=== PATIENT | female | born 1995 | race Caucasian/White ===

== ENCOUNTER 2018-05-20 10:59 | Outpatient (CLI) | payer BC, OTHER ==
[2018-05-20 11:31] VITALS: TEMP 97.2
[2018-05-20 11:32] VITALS: RESP 16
[2018-05-20 11:44] LABS: Appearance,Urine Clear (Clear); Bilirubin,Urine Negative (Negative); Blood,Urine Negative (Negative); Color,Urine Yellow; Glucose,Urine (UA) 2+ (Negative); Ketones,Urine Negative (Negative); Leukocyte Esterase,Urine Negative (Negative); Nitrite,Urine Negative (Negative); Protein,Urine Trace (Negative); Urobilinogen,Urine <2.0 mg/dL (<2.0)
[2018-05-20 12:33] LABS: Basophils % (A) 0 %; Eosinophils # (A) 0.1 k/uL (0-0.7); Eosinophils % (A) 1 %; HCT 32.4 % (34.0-46.0); HGB 10.7 gm/dL (11.4-16.0); Lymphocytes # (A) 1.9 k/uL (1.0-4.8); Lymphocytes % (A) 14 %; MCH 27.8 pg (25.0-35.0); MCHC 32.9 g/dL (31.0-37.0); MCV 84.4 fL (80.0-100.0); Mean Platelet Volume 8.2; Monocytes # (A) 0.5 k/uL (0-1.0); Monocytes % (A) 4 %; Neutrophils # (A) 10.5 k/uL (1.3-7.7); Neutrophils % (A) 80 %; Platelet Count 277 k/uL (150-450); RBC 3.84 m/uL (3.80-5.40); RDW 14.5 % (11.5-15.5); WBC 13.2 k/uL (3.8-10.6)
[2018-05-20 13:00] VITALS: BP 119/73; PULSE 90
[2018-05-20 13:16] LABS: ALT 25 U/L (9-52); AST 19 U/L (14-36); Blood Urea Nitrogen 9 mg/dL (7-17); LDH 400 U/L (313-618); Uric Acid 4.3 mg/dL (3.7-7.4)
== END 2018-05-20 13:30 | disposition home or self-care (01) ==
LOC: FBPOP 10:59
PROVIDERS: ATTEND Obstetrics & Gynecology
DX: O13.3 Gestational [pregnancy-induced] hypertension without significant proteinuria, third trimester (principal); Z3A.36 36 weeks gestation of pregnancy
CPT/HCPCS: 59025; 81003; 82565; 83615; 84450; 84460; 84520; 84550; 85025

== ENCOUNTER 2018-05-23 06:00 | Inpatient (IN) | payer BC, OTHER ==
[2018-05-23] MEDS ORDERED: DINOPROSTONE 10 MG INSERT.ER VAGINAL ONE (16:38)
[2018-05-23] MEDS ORDERED: BUTORPHANOL 1 MG/ML 1 ML VIAL IV PRN (16:38)
[2018-05-23 16:57] VITALS: BP 142/79; RESP 16; TEMP 97.4; BMI 32.8
[2018-05-23 17:48] VITALS: PULSE 104
[2018-05-24] MEDS ORDERED: CARBOPROST TROMETHAMINE 250 MCG/ML 1 ML AMP IM PRN (04:57)
[2018-05-24] MEDS ORDERED: METHYLERGONOVINE 0.2 MG/ML 1 ML AMP IM PRN (04:57)
[2018-05-24] MEDS ORDERED: LIDOCAINE 0.5% (PF) 5 MG/ML (50 ML SDV) SQ PRN (04:57)
[2018-05-24] MEDS ORDERED: TERBUTALINE 1 MG/ML VIAL SQ PRN (04:57)
[2018-05-24] MEDS ORDERED: OXYTOCIN 10 UNIT/ML 1 ML VIAL IM PRN (04:57)
[2018-05-24] MEDS ORDERED: LACTATED RINGERS 1,000 ML IV SCH (05:00)
[2018-05-24] MEDS ORDERED: OXYTOCIN 20 UNITS/1000 ML NS 1,000 ML IV SCH (06:00)
[2018-05-24 06:05] LABS: Basophils % (A) 0 %; Eosinophils # (A) 0.1 k/uL (0-0.7); Eosinophils % (A) 1 %; HCT 33.6 % (34.0-46.0); HGB 10.7 gm/dL (11.4-16.0); Lymphocytes # (A) 2.2 k/uL (1.0-4.8); Lymphocytes % (A) 19 %; MCH 26.6 pg (25.0-35.0); MCV 83.3 fL (80.0-100.0); Mean Platelet Volume 7.1; Monocytes # (A) 0.4 k/uL (0-1.0); Monocytes % (A) 3 %; Neutrophils # (A) 8.4 k/uL (1.3-7.7); Neutrophils % (A) 74 %; Platelet Count 323 k/uL (150-450); RBC 4.03 m/uL (3.80-5.40); RDW 14.8 % (11.5-15.5); WBC 11.4 k/uL (3.8-10.6)
[2018-05-24 08:24] LABS: Basophils % (A) 0 %; Eosinophils # (A) 0.1 k/uL (0-0.7); Eosinophils % (A) 1 %; HCT 32.8 % (34.0-46.0); HGB 10.9 gm/dL (11.4-16.0); Lymphocytes # (A) 1.6 k/uL (1.0-4.8); Lymphocytes % (A) 13 %; MCH 27.9 pg (25.0-35.0); MCHC 33.1 g/dL (31.0-37.0); MCV 84.3 fL (80.0-100.0); Mean Platelet Volume 7.8; Monocytes # (A) 0.4 k/uL (0-1.0); Monocytes % (A) 3 %; Neutrophils # (A) 10.5 k/uL (1.3-7.7); Neutrophils % (A) 82 %; Platelet Count 283 k/uL (150-450); RBC 3.89 m/uL (3.80-5.40); RDW 14.8 % (11.5-15.5); WBC 12.8 k/uL (3.8-10.6)
[2018-05-24 08:34] LABS: ALT 28 U/L (9-52); AST 20 U/L (14-36); Blood Urea Nitrogen 9 mg/dL (7-17); LDH 437 U/L (313-618); Uric Acid 4.5 mg/dL (3.7-7.4)
[2018-05-24 08:53] LABS: Appearance,Urine Clear (Clear); Bilirubin,Urine Negative (Negative); Blood,Urine Negative (Negative); Color,Urine Yellow; Glucose,Urine (UA) Negative (Negative); Ketones,Urine Negative (Negative); Leukocyte Esterase,Urine Negative (Negative); Nitrite,Urine Negative (Negative); PH, Urine 6.5 (5.0-8.0); Protein,Urine Negative (Negative); Specific Gravity,Urine 1.014 (1.001-1.035); Urobilinogen,Urine <2.0 mg/dL (<2.0)
--- NOTE | 2018-05-24 09:12 | DS ---
DISCHARGE SUMMARY DATE OF ADMISSION: 05/23/2018 DATE OF DISCHARGE: 05/24/2018 PRINCIPAL DIAGNOSIS: Intrauterine with gestational hypertension. POSTOPERATIVE DIAGNOSIS: Intrauterine with gestational hypertension. HOSPITAL COURSE: Radha has done well, however, did not make any cervical change despite Cervidil ripening. A long discussion was held with she and her mother on treatment options. These did include using Pitocin to try and stimulate labor despite the fact that she was fingertip and approximately 50% effaced, -3 station, a primary section to get her delivered or discharge to home with repeat trial of Cervidil ripening on Wednesday into . As she is adamant she does not want a section and with over 40% likelihood of requiring a based on cervical effacement and dilation, she has opted to be discharged home and will return tomorrow for a repeat Cervidil ripening. Repeat preeclamptic labs were done prior to her discharge and were all normal. Her vital signs are otherwise stable and her blood pressure currently is 130/80. As I have no other specific reasons to have to induce her today other than to get her delivered in the next few days due to her gestational hypertension, I think this is a reasonable option. She is aware should she have any headache, epigastric pain, or visual changes to immediately come back to Labor and Delivery for evaluation. She will do kick counts today and tomorrow, but the NST today is reactive and baby has a category 1 tracing. She and I have discussed that if the Cervidil again does not work, we may need to be more aggressive with using medications to try and stimulate labor as she will be approaching 38 weeks. All other questions are answered for her at this time. Her vital signs again are stable. Her heart is regular, lungs are clear and her extremities are without pain and show no pedal edema. Abdomen is soft and gravid uterus is noted. There are no contractions noted on the monitor. She denies any headaches, epigastric pain, or visual changes at this time and the deep tendon reflexes are +2. ASSESSMENT: 1. Intrauterine at 37 weeks with gestational hypertension. PLAN: Discharge home. Return tomorrow for repeat dose of Cervidil. MMODL / IJN: [id number] /
== END 2018-05-24 09:23 | disposition home or self-care (01) | DRG 998 ==
LOC: 4FBP 16:16
PROVIDERS: ADMIT Obstetrics & Gynecology; ATTEND Obstetrics & Gynecology
PROC: 3E0P7VZ Introduction of Hormone into Female Reproductive, Via Natural or Artificial Opening (ICD-10-PCS; principal; 2018-05-23)
PROC: 3E033VJ Introduction of Other Hormone into Peripheral Vein, Percutaneous Approach (ICD-10-PCS; principal; 2018-05-23)
DX: O13.4 Gestational [pregnancy-induced] hypertension without significant proteinuria, complicating childbirth (principal); O61.0 Failed medical induction of labor; Z3A.37 37 weeks gestation of pregnancy
CPT/HCPCS: 81003; 82565; 83615; 84450; 84460; 84520; 84550; 85025; 86850; 86900; 86901

== ENCOUNTER 2018-05-25 16:44 | Inpatient (IN) | payer BC, OTHER ==
[2018-05-25] MEDS ORDERED: BUTORPHANOL 1 MG/ML 1 ML VIAL IV PRN (16:58)
[2018-05-25 17:07] VITALS: BMI 34.1
[2018-05-25] MEDS ORDERED: DINOPROSTONE 10 MG INSERT.ER VAGINAL ONE (17:15)
[2018-05-26] MEDS ORDERED: OXYTOCIN 10 UNIT/ML 1 ML VIAL IM PRN (05:11)
[2018-05-26] MEDS ORDERED: TERBUTALINE 1 MG/ML VIAL SQ PRN (05:11)
[2018-05-26] MEDS ORDERED: CARBOPROST TROMETHAMINE 250 MCG/ML 1 ML AMP IM PRN (05:11)
[2018-05-26] MEDS ORDERED: LIDOCAINE 0.5% (PF) 5 MG/ML (50 ML SDV) SQ PRN (05:11)
[2018-05-26] MEDS ORDERED: METHYLERGONOVINE 0.2 MG/ML 1 ML AMP IM PRN (05:11)
[2018-05-26] MEDS ORDERED: OXYTOCIN 20 UNITS/1000 ML NS 1,000 ML IV SCH (05:15)
[2018-05-26 05:56] LABS: Basophils % (A) 0 %; Eosinophils # (A) 0.2 k/uL (0-0.7); Eosinophils % (A) 1 %; HCT 32.9 % (34.0-46.0); HGB 10.6 gm/dL (11.4-16.0); Lymphocytes # (A) 1.6 k/uL (1.0-4.8); Lymphocytes % (A) 13 %; MCHC 32.1 g/dL (31.0-37.0); MCV 84.1 fL (80.0-100.0); Mean Platelet Volume 7.5; Monocytes # (A) 0.5 k/uL (0-1.0); Monocytes % (A) 4 %; Neutrophils # (A) 9.9 k/uL (1.3-7.7); Neutrophils % (A) 80 %; Platelet Count 299 k/uL (150-450); RBC 3.91 m/uL (3.80-5.40); RDW 14.8 % (11.5-15.5); WBC 12.5 k/uL (3.8-10.6)
[2018-05-26] MEDS: LACTATED RINGERS 1,000 ML IV SCH ×2 (05:58→11:43)
[2018-05-26] MEDS ORDERED: ceFAZolin IN SWFI 2 GM/20 ML SYRINGE IVP ONE (16:15)
[2018-05-26] MEDS ORDERED: CITRIC ACID-SODIUM CITRATE 15 ML CUP PO ONE (16:15)
[2018-05-26] MEDS ORDERED: KETOROLAC 30 MG/ML 1 ML VIAL ONE (17:05)
[2018-05-26] MEDS ORDERED: OXYTOCIN 10 UNIT/ML 1 ML VIAL ONE (17:05)
[2018-05-26] MEDS ORDERED: ONDANSETRON 4 MG/2 ML VIAL ONE (17:05)
[2018-05-26] MEDS ORDERED: MORPHINE SULFATE (PF) 0.3 MG/0.3 ML SYR ONE (17:05)
[2018-05-26] MEDS ORDERED: LACTATED RINGERS 1,000 ML BAG IV ONE (17:05)
[2018-05-26] MEDS ORDERED: NALBUPHINE 10 MG/ML VIAL (10ML MDV) ONE (17:05)
[2018-05-26] MEDS ORDERED: METOCLOPRAMIDE 5 MG/ML 2 ML VIAL IVP PRN (18:09)
[2018-05-26] MEDS ORDERED: diphenhydrAMINE 50 MG CAP PO PRN (18:09)
[2018-05-26] MEDS ORDERED: NALOXONE 0.4 MG/ML 1 ML VIAL IV PRN (18:09)
[2018-05-26] MEDS ORDERED: diphenhydrAMINE 25 MG CAP PO PRN (18:09)
[2018-05-26] MEDS ORDERED: diphenhydrAMINE 50 MG/ML 1 ML VIAL IVP PRN ×2 (18:09)
[2018-05-26] MEDS ORDERED: KETOROLAC 30 MG/ML 1 ML VIAL IVP PRN (18:09)
[2018-05-26] MEDS ORDERED: ZOLPIDEM 5 MG TAB PO PRN (18:09)
[2018-05-26] MEDS ORDERED: ONDANSETRON 4 MG/2 ML VIAL IVP PRN (18:09)
--- NOTE | 2018-05-26 18:13 | P.HPOB ---
History of Present Illness H&P Date: 05/26/18 Chief Complaint: Intrauterine at term: Gestational hypertension Patient is a 23-year-old at 37 weeks 3 days gestation who had Cervidil ripening yesterday. She has gestational hypertension with multiple pressures of systolic over 140 and/or diastolic over 90. She is being induced for same. Risks/benefits/alternatives were reviewed with the patient in detail and all questions were answered for her prior to proceeding. She was dilated to 1 cm this morning and artificial rupture members was performed clear fluid noted. She was also 8% effaced and -3 station. heart tones were in the 130s 140s and category 1 tracing was noted. Plan is for Pitocin augmentation of labor with probably epidural for analgesia. Her Precis course otherwise had been unremarkable up until last few weeks when she began having slight elevations of her blood pressure preeclamptic labs have all been normal she denied headache epigastric pain or other signs or symptoms of preeclampsia. We' ll plan for induction of labor. Pertinent labs include B+ blood type, Rh antibody was negative. Rubella was immune, hepatitis B surface antigen/RPR/HIV/ cheek GBS were all negative. Past Medical History Past Medical History: No Reported History History of Any Multi-Drug Resistant Organisms: None Reported Past Surgical History: No Surgical Hx Reported Past Anesthesia/Blood Transfusion Reactions: No Reported Reaction Past Psychological History: Anxiety, Bipolar, Depression Smoking Status: Former smoker Past Alcohol Use History: Occasional Past Drug Use History: None Reported - Past Family History Father Family Medical History: No Reported History Medications and Allergies Home Medications Medication Instructions Recorded Confirmed Type No Known Home Medications 05/20/18 05/23/18 History Allergies Allergy/AdvReac Type Severity Reaction Status Date / Time No Known Allergies Allergy Verified 05/25/18 16:58 Exam Osteopathic Statement: *. No significant issues noted on an osteopathic structural exam other than those noted in the History and Physical/Consult. Intake and Output 05/26/18 05/26/18 05/26/18 06:59 14:59 22:59 Intake Total 500 1000 Balance 500 1000 Intake: IV 200 Lactated Ringers 1,000 ml 200 @ 125 mls/hr IV .Q8H [facility] Rx#:[id number] Intake, IV Titration 1000 Amount Oxytocin 20 Units/1000 ml 1000 Ns 1,000 ml @ 1 MILLIUNIT/MIN 3 mls/hr IV .Q24H [facility] Rx#:[id number] Oral 300 Other: # Voids 2 4 - OBG Physical Exam Breast: both: normal (no masses) Abdomen: bowel sounds normal, no diffuse tenderness, no bruit present, no guarding noted, no hepatomegaly, no splenomegaly, no mass Vulva: both: normal Vagina: normal moisture, no discharge Cervix: no lesion, no discharge Uterus: normal size, normal contour Adnexa: both: normal Anus/Rectum: normal perianal skin, no rectal mass, no hemorrhoids, heme negative Results Result Diagrams: 05/26/18 05:49 Abnormal Lab Results - Last 24 Hours (Table) 05/26/18 Range/Units 05:49 WBC 12.5 H (3.8-10.6) k/uL Hgb 10.6 L (11.4-16.0) gm/dL Hct 32.9 L (34.0-46.0) % Neutrophils # 9.9 H (1.3-7.7) k/uL
[2018-05-26] MEDS ORDERED: LACTATED RINGERS 1,000 ML IV SCH (18:15)
--- NOTE | 2018-05-26 18:17 | P.OP ---
Date of Procedure: 05/26/18 Preoperative Diagnosis: Intrauterine at term: Gestational hypertension: Failure to progress Postoperative Diagnosis: Same with OP position Procedure(s) Performed: Primary low transverse section Anesthesia: spinal Surgeon: Oswald Ruiz Paint Spray Tender #1: Rut Tracy Estimated Blood Loss (ml): 200 IV fluids (ml): 1,000 Urine output (ml): 50 Pathology: other (Placenta) Condition: stable Disposition: floor Operative Findings: Female scores were 8 and 9 at one and 5 minutes respectively and the weight was 6 lbs. 7 oz. Description of Procedure: Patient was taken to the operating suite where a spinal anesthetic was found be adequate. She was prepped and draped in the normal sterile fashion and placed in dorsal supine position with leftward tilt. Initially a Pfannenstiel skin incision was made and this incision was then carried through to underlying layer of the fascia with the second knife. Fascia was then nicked in the midline and this opening was extended laterally with Romero scissors. Superior and inferior aspect of this incision were then grasped tented up and bluntly and sharply dissected off the rectus muscles. Rectus muscles were then divided the midline and blunt dissection through the peritoneum was made. This opening was then extended superiorly and inferiorly with good visualization of both bowel bladder. Bladder blade was then placed and the bladder flap identified. It was entered sharply with Metzenbaum scissors and this opening was a's uterus with Metzenbaum scissors and bladder flap was digitally created. Knife was then used to incise uterus. Opening was fully developed with a hemostat and extended bluntly. Head was then atraumatically delivered and mouth nares were bulb suctioned. Once head was delivered shoulders were delivered gentle sideward traction followed by the remainder the baby. Umbilical cord was then clamped cut usual fashion an nursery personnel was present to assume care. Placenta was then delivered intact and Pitocin was added to the IV. Uterus was then exteriorized cleared of clots and debris and closed in 2 layers with 0 Vicryl suture. Despite this closely was still some mild oozing along the suture line therefore FloSeal was used to obtain excellent hemostasis. Blood and debris was also suctioned the posterior cul-de-sac and uterus had been reinserted into the abdomen. Peritoneal layer was then closed with 0 Vicryl suture. Fascial layer was closed with 0 Vicryl suture. One layer of 3-0 Vicryl was placed in the deep subcuticular tissues to reapproximate the skin and close the space and the skin was then closed with 3-0 Vicryl. Sponge, lap, needle counts were all correct 2. Patient was then taken to the recovery room in stable and satisfactory condition.
[2018-05-26] MEDS: SENNOSIDES-DOCUSATE SODIUM 1 EACH TAB PO SCH (19:43)
[2018-05-27] MEDS: LACTATED RINGERS 1,000 ML IV SCH ×2 (02:11→09:36)
--- NOTE | 2018-05-27 06:21 | P.PN ---
Progress Note - Text Progress Note Date: 05/27/18 Duramorph spinal rounds Patient evaluated at the bedside denies any complaints Anesthesia site spinal site looks clean dry and intact Vitals within normal limits Pain well-controlled no complaints of pruritus or headaches This spinal site looks clean dry and intact Anesthesia signing off
[2018-05-27 06:58] LABS: Basophils % (A) 0 %; Eosinophils # (A) 0.1 k/uL (0-0.7); Eosinophils % (A) 1 %; HCT 31.3 % (34.0-46.0); HGB 9.8 gm/dL (11.4-16.0); Lymphocytes # (A) 1.3 k/uL (1.0-4.8); Lymphocytes % (A) 12 %; MCH 26.1 pg (25.0-35.0); MCHC 31.2 g/dL (31.0-37.0); MCV 83.4 fL (80.0-100.0); Mean Platelet Volume 8.9; Monocytes # (A) 0.3 k/uL (0-1.0); Monocytes % (A) 3 %; Neutrophils # (A) 9.3 k/uL (1.3-7.7); Neutrophils % (A) 83 %; Platelet Count 241 k/uL (150-450); RBC 3.75 m/uL (3.80-5.40); RDW 14.7 % (11.5-15.5); WBC 11.2 k/uL (3.8-10.6)
--- NOTE | 2018-05-27 07:57 | P.PNOBGPC ---
Subjective - Subjective Principal diagnosis: Postop day 1 Interval history: Patient is doing very well postop day 1. She is involuting some, voiding and tolerating her diet. She voices no complaints. Vital signs are stable and afebrile. Heart regular, lungs clear, extremities are without pain. Abdomen is soft uterus is firm and her incision is otherwise clean dry and intact. Patient reports: Reports appetite normal, Reports voiding normally, Reports pain well controlled, Reports ambulating normally : doing well Objective - Vital Signs Latest vital signs: Vital Signs Temp Pulse Resp BP Pulse Ox 05/27/18 04:00 96.9 F L 79 18 114/62 97 05/27/18 00:00 67 18 117/72 98 05/26/18 20:12 96.9 F L 68 18 113/72 97 05/26/18 19:42 72 18 115/74 93 L 05/26/18 19:12 78 18 121/71 97 05/26/18 18:57 79 18 111/71 97 05/26/18 18:42 97.0 F L 80 18 111/86 97 05/26/18 18:27 81 18 122/63 98 05/26/18 18:12 96.8 F L 76 18 117/57 96 Intake and Output 05/26/18 05/27/18 05/27/18 22:59 06:59 14:59 Intake Total 125 500 Output Total 300 200 Balance -175 300 Intake: IV 125 500 Lactated Ringers 1,000 ml 500 @ 125 mls/hr IV .Q8H [facility] Rx#:[id number] Output: Urine 100 200 Uretheral (Lara) 200 Estimated Blood Loss 200 Other: Voiding Method Indwelling Catheter Indwelling Catheter - Exam Lungs: bilateral: normal Chest: Normal S1, Normal S2 Extremities: Present: normal Abdomen: Present: normal appearance, soft. Absent: distention, tenderness Incision: Present: normal, dry, intact Uterus: Present: normal, firm - Labs Labs: Abnormal Lab Results - Last 24 Hours (Table) 05/27/18 Range/Units 06:48 WBC 11.2 H (3.8-10.6) k/uL RBC 3.75 L (3.80-5.40) m/uL Hgb 9.8 L (11.4-16.0) gm/dL Hct 31.3 L (34.0-46.0) % Neutrophils # 9.3 H (1.3-7.7) k/uL
[2018-05-27] MEDS: SENNOSIDES-DOCUSATE SODIUM 1 EACH TAB PO SCH ×2 (09:41→21:34)
[2018-05-27] MEDS: ACETAMINOPHEN TAB 325 MG TAB PO PRN ×2 (12:31→18:34)
[2018-05-27 15:53] VITALS: TEMP 98.3
[2018-05-27] MEDS: IBUPROFEN 600 MG TAB PO PRN (21:33)
[2018-05-28 01:10] VITALS: BP 121/72; PULSE 77; RESP 16
[2018-05-28] MEDS: IBUPROFEN 600 MG TAB PO PRN (04:00)
--- NOTE | 2018-05-28 09:01 | P.DS ---
Providers Date of admission: 05/25/18 16:44 Expected date of discharge: 05/28/18 Attending physician: Oswald Ruiz Primary care physician: Stated None - Discharge Diagnosis(es) (1) Status post primary low transverse section Current Visit: Yes Status: Acute Hospital Course: Pt presented for induction of labor for gestational hypertension. She underwent a primary low transverse for failure to progress. HEr BPs are normal. She denies N/V, F/C, CP, KISER or SOB. Her pain is controlled and she is voiding and ambulating without difficulty. She will be discharged home POD #2 in stable condition to follow up with Dr Ruiz in 1 week. Plan - Discharge Summary New Discharge Prescriptions: New HYDROcodone/APAP 5-325MG [[place] 5-325] 1 tab PO Q4HR PRN #30 tab PRN Reason: Pain Ibuprofen [Motrin] 600 mg PO Q6HR PRN #30 tab PRN Reason: Pain Discharge Medication List HYDROcodone/APAP 5-325MG [[place] 5-325] 1 tab PO Q4HR PRN #30 tab 05/27/18 [Rx] Ibuprofen [Motrin] 600 mg PO Q6HR PRN #30 tab 05/27/18 [Rx] Follow up Appointment(s)/Referral(s): Oswald Ruiz DO [Doctor of Osteopathic Medicine] - 1 Week Activity/Diet/Wound Care/Special Instructions: No heavy lifting, limit stairs and driving, and pelvic rest. If any high temperatures, heavy bleeding, or severe pain call my office Discharge Disposition: HOME SELF-CARE
[2018-05-28] MEDS: SENNOSIDES-DOCUSATE SODIUM 1 EACH TAB PO SCH (09:55)
== END 2018-05-28 11:20 | disposition home or self-care (01) | DRG 788 ==
LOC: 4FBP 16:44
PROVIDERS: ADMIT Obstetrics & Gynecology; ATTEND Obstetrics & Gynecology
PROC: 10D00Z1 Extraction of Products of Conception, Low, Open Approach (ICD-10-PCS; principal; 2018-05-25)
PROC: 10907ZC Drainage of Amniotic Fluid, Therapeutic from Products of Conception, Via Natural or Artificial Opening (ICD-10-PCS; 2018-05-25)
DX: O13.4 Gestational [pregnancy-induced] hypertension without significant proteinuria, complicating childbirth (principal); O62.2 Other uterine inertia; O99.344 Other mental disorders complicating childbirth; F41.9 Anxiety disorder, unspecified; F31.9 Bipolar disorder, unspecified; O99.62 Diseases of the digestive system complicating childbirth; Z37.0 Single live birth; Z3A.37 37 weeks gestation of pregnancy; Z87.891 Personal history of nicotine dependence
CPT/HCPCS: 85025; 88307

== ENCOUNTER 2020-01-31 15:49 | Emergency (ER) | payer BC, OTHER ==
[2020-01-31 15:57] VITALS: TEMP 98.6
--- NOTE | 2020-01-31 16:45 | ED ---
Female Urogenital HPI - General Chief complaint: Vaginal Bleeding Stated complaint: 6wks preg bleeding Time Seen by Provider: 01/31/20 15:59 Source: patient Mode of arrival: ambulatory Limitations: no limitations - History of Present Illness Initial comments: Patient is a 24-year-old female presenting to the emergency Department with complaints of vaginal bleeding and increase in pain for the last few days. Patient is currently 6 weeks , . She states she noticed some light spotting for the past 3 days but then today the bleeding has increased and she is starting to pass clots. Patient states she also started to have some pain today which she didn't have the previous 3 days. Patient's LUNG PULLER is Dr. Ruiz and she did call their office today and they said if the pain and bleeding continues to go to the ER for evaluation. The history of , no other abdominal surgeries. Any fever, chills, chest pain or shortness of br eath, dizziness. She has no further complaints at this time. Upon arrival to the ER, patient was little tachycardia but otherwise normal vitals. She states she was just really nervous. - Related Data Previous Rx's Medication Instructions Recorded HYDROcodone/APAP 5-325MG [[place] 1 tab PO Q4HR PRN #30 tab 05/27/18 5-325] Ibuprofen [Motrin] 600 mg PO Q6HR PRN #30 tab 05/27/18 Allergies Allergy/AdvReac Type Severity Reaction Status Date / Time No Known Allergies Allergy Verified 01/31/20 15:57 Review of Systems ROS Statement: Those systems with pertinent positive or pertinent negative responses have been documented in the HPI. ROS Other: All systems not noted in ROS Statement are negative. Past Medical History Past Medical History: No Reported History History of Any Multi-Drug Resistant Organisms: None Reported Past Surgical History: Section Past Anesthesia/Blood Transfusion Reactions: No Reported Reaction Past Psychological History: Anxiety, Bipolar, Depression Smoking Status: Former smoker Past Alcohol Use History: Occasional Past Drug Use History: None Reported - Past Family History Father Family Medical History: No Reported History General Exam - General Exam Comments Initial Comments: GENERAL: Patient is well-developed and well-nourished. Patient is nontoxic and in no acute distress. HEAD: Atraumatic, normocephalic. EYES: Pupils equal round and reactive to light, extraocular movements intact, sclera anicteric, conjunctiva are normal. Eyelids were unremarkable. ENT: TMs normal, nares patent, oropharynx clear without exudates. Moist mucous membranes. NECK: Normal range of motion, supple without lymphadenopathy or JVD. LUNGS: Unlabored respirations. Breath sounds clear to auscultation bilaterally and equal. No wheezes rales or rhonchi. HEART: Regular rate and rhythm without murmurs, rubs or gallops. ABDOMEN: Mild pain with palpation suprapubic area. Soft, normoactive bowel sounds. No guarding, no rebound. No masses appreciated. MUSCULOSKELETAL: Normal extremities with adequate strength and normal range of motion, no pitting or edema. No clubbing or cyanosis. NEUROLOGICAL: Patient is alert and oriented x 3. Motor and sensory are also intact. Cranial nerves II through XII grossly intact. Symmetrical smile. Normal speech, normal gait. PSYCH: Normal mood, normal affect. SKIN: Warm, Dry, normal turgor, no rashes or lesions noted. Limitations: no limitations External exam: Present: normal external exam Speculum exam: Present: vaginal bleeding, other (Cervical os is closed). Absent: cervical discharge, foreign body By manual exam: Present: normal by manual exam Course Vital Signs 01/31/20 01/31/20 15:54 18:29 Temperature 98.6 F Pulse Rate 128 H 93 Respiratory 20 18 Rate Blood Pressure 138/86 138/71 O2 Sat by Pulse 98 99 Oximetry Medical Decision Making - Medical Decision Making Patient is a 24-year-old female, currently 6 weeks , , presenting for vaginal bleeding and pain has been increasing over the past 4 days[address] PULLER [address]. Ruiz. Labs show no acute process, hCG Quant is 3900, urine shows no evidence for infection. Ultrasound reveals no evidence of a IUP. There is a right ovarian cyst as well. Blood type is B+. I did discuss the details with the patient. Patient did say that she did have an ultrasound performed yesterday which I was unaware of, there was a viable IUP and a heartbeat noted yesterday. Given these new findings, I discussed with patient that she most likely is miscarrying. We discussed that she may have some vaginal bleeding over the next few days. She can follow up with Dr. Ruiz. She is stable for discharge at this time. Return parameters were discussed with the patient and she verbalized understanding. - Lab Data Result diagrams: 01/31/20 16:31 01/31/20 16:31 Lab Results 01/31/20 01/31/20 01/31/20 Range/Units 16:31 16:31 16:31 WBC 9.4 (3.8-10.6) k/uL RBC 4.37 (3.80-5.40) m/uL Hgb 12.6 (11.4-16.0) gm/dL Hct 37.2 (34.0-46.0) % MCV 85.3 (80.0-100.0) fL MCH 28.8 (25.0-35.0) pg MCHC 33.8 (31.0-37.0) g/dL RDW 12.9 (11.5-15.5) % Plt Count 278 (150-450) k/uL Neutrophils % 71 % Lymphocytes % 24 % Monocytes % 3 % Eosinophils % 1 % Basophils % 0 % Neutrophils # 6.7 (1.3-7.7) k/uL Lymphocytes # 2.3 (1.0-4.8) k/uL Monocytes # 0.3 (0-1.0) k/uL Eosinophils # 0.1 (0-0.7) k/uL Basophils # 0.0 (0-0.2) k/uL Sodium 139 (137-145) mmol/L Potassium 3.5 (3.5-5.1) mmol/L Chloride 105 (98-107) mmol/L Carbon Dioxide 26 (22-30) mmol/L Anion Gap 8 mmol/L BUN 10 (7-17) mg/dL Creatinine 0.83 (0.52-1.04) mg/dL Est GFR (CKD-EPI)AfAm >90 (>60 ml/min/1.73 sqM) Est GFR (CKD-EPI)NonAf >90 (>60 ml/min/1.73 sqM) Glucose 126 H (74-99) mg/dL Calcium 9.2 (8.4-10.2) mg/dL HCG, Quant 3920.5 mIU/mL Urine Color Colorless Urine Appearance Clear (Clear) Urine pH 6.5 (5.0-8.0) Ur Specific [place] 1.003 (1.001-1.035) Urine Protein Negative (Negative) Urine Glucose (UA) Negative (Negative) Urine Ketones Negative (Negative) Urine Blood Moderate H (Negative) Urine Nitrite Negative (Negative) Urine Bilirubin Negative (Negative) Urine Urobilinogen <2.0 (<2.0) mg/dL Ur Leukocyte Esterase Negative (Negative) Urine RBC 4 (0-5) /hpf Urine WBC <1 (0-5) /hpf Blood Type Blood Type Recheck Bld Type Recheck Status 01/31/20 Range/Units 16:31 WBC (3.8-10.6) k/uL RBC (3.80-5.40) m/uL Hgb (11.4-16.0) gm/dL Hct (34.0-46.0) % MCV (80.0-100.0) fL MCH (25.0-35.0) pg MCHC (31.0-37.0) g/dL RDW (11.5-15.5) % Plt Count (150-450) k/uL Neutrophils % % Lymphocytes % % Monocytes % % Eosinophils % % Basophils % % Neutrophils # (1.3-7.7) k/uL Lymphocytes # (1.0-4.8) k/uL Monocytes # (0-1.0) k/uL Eosinophils # (0-0.7) k/uL Basophils # (0-0.2) k/uL Sodium (137-145) mmol/L Potassium (3.5-5.1) mmol/L Chloride (98-107) mmol/L Carbon Dioxide (22-30) mmol/L Anion Gap mmol/L BUN (7-17) mg/dL Creatinine (0.52-1.04) mg/dL Est GFR (CKD-EPI)AfAm (>60 ml/min/1.73 sqM) Est GFR (CKD-EPI)NonAf (>60 ml/min/1.73 sqM) Glucose (74-99) mg/dL Calcium (8.4-10.2) mg/dL HCG, Quant mIU/mL Urine Color Urine Appearance (Clear) Urine pH (5.0-8.0) Ur Specific [place] (1.001-1.035) Urine Protein (Negative) Urine Glucose (UA) (Negative) Urine Ketones (Negative) Urine Blood (Negative) Urine Nitrite (Negative) Urine Bilirubin (Negative) Urine Urobilinogen (<2.0) mg/dL Ur Leukocyte Esterase (Negative) Urine RBC (0-5) /hpf Urine WBC (0-5) /hpf Blood Type B Positive Blood Type Recheck B Pos Bld Type Recheck Status No Disposition Clinical Impression: Vaginal bleeding during , Lower abdominal pain, Miscarriage Disposition: HOME SELF-CARE Condition: Stable Instructions (If sedation given, give patient instructions): Miscarriage (ED) Additional Instructions: Please return to the Emergency Department if symptoms worsen or any other concerns. Follow-up with Dr. Ruiz as discussed. Is patient prescribed a controlled substance at d/c from ED?: No Referrals: Regan Roy DO [Primary Care Provider] - 1-2 days Oswald Ruiz DO [Doctor of Osteopathic Medicine] - 1-2 days
[2020-01-31 16:47] LABS: Appearance,Urine Clear (Clear); Bilirubin,Urine Negative (Negative); Blood,Urine Moderate (Negative); Color,Urine Colorless; Glucose,Urine (UA) Negative (Negative); Ketones,Urine Negative (Negative); Leukocyte Esterase,Urine Negative (Negative); Nitrite,Urine Negative (Negative); PH, Urine 6.5 (5.0-8.0); Protein,Urine Negative (Negative); RBC,Urine 4 /hpf (0-5); Specific Gravity,Urine 1.003 (1.001-1.035); Urobilinogen,Urine <2.0 mg/dL (<2.0); WBC,Urine <1 /hpf (0-5)
[2020-01-31 16:56] LABS: African American GFR (CKD) >90 (>60 ml/min/1.73 sqM); Anion Gap 8 mmol/L; Basophils % (A) 0 %; Blood Urea Nitrogen 10 mg/dL (7-17); Calcium 9.2 mg/dL (8.4-10.2); Carbon Dioxide 26 mmol/L (22-30); Chloride 105 mmol/L (98-107); Eosinophils # (A) 0.1 k/uL (0-0.7); Eosinophils % (A) 1 %; Glucose 126 mg/dL (74-99); HCT 37.2 % (34.0-46.0); HGB 12.6 gm/dL (11.4-16.0); Lymphocytes # (A) 2.3 k/uL (1.0-4.8); Lymphocytes % (A) 24 %; MCH 28.8 pg (25.0-35.0); MCHC 33.8 g/dL (31.0-37.0); MCV 85.3 fL (80.0-100.0); Mean Platelet Volume 7.3; Monocytes # (A) 0.3 k/uL (0-1.0); Monocytes % (A) 3 %; Neutrophils # (A) 6.7 k/uL (1.3-7.7); Neutrophils % (A) 71 %; Non-African American GFR(CKD) >90 (>60 ml/min/1.73 sqM); Platelet Count 278 k/uL (150-450); Potassium 3.5 mmol/L (3.5-5.1); RBC 4.37 m/uL (3.80-5.40); RDW 12.9 % (11.5-15.5); Sodium 139 mmol/L (137-145); WBC 9.4 k/uL (3.8-10.6)
[2020-01-31 17:13] LABS: HCG,Quantitative Serum 3920.5 mIU/mL
--- NOTE | 2020-01-31 18:22 | US ---
EXAMINATION TYPE: DATE OF EXAM: 01/31/2020 5:05 PM COMPARISON: NONE CLINICAL HISTORY: 6wks , bleeding, pain. Tech: Candi Harkins EXAM PERFORMED: Transvaginal (TV) and Transabdominal (TA) EXAM MEASUREMENTS: GESTATIONAL AGE / DATING Physician Established: Not yet established Dates by Current Scan for: No IUP seen at this time MATERNAL ANATOMY Uterus: 9.3 x 4.4 x 5.7 cm Right Ovary: 2.8 x 2.4 x 1.9 cm Left Ovary: 1.9 x 1.8 x 1.3 cm Post CDS / Adnexa: wnl Presence of free fluid: No Presence of corpus luteal cyst: Yes, right ovary measuring 1.4 x 1.4 x 2.0 cm GESTATION / SURVEY IUP: No IUP seen at this time. Tiny amount fluid may be within the endometrial canal. Date of LMP: Unsure Beta HcG (if available): Not available No IUP visualized. Cystic area within myometrium measuring 0.7 x 0.4 x 0.9 cm. Cystic area right ovar y. IMPRESSION: 1. No intrauterine gestation identified at this time. Correlate for early or ectopic pregna ncy. 2. Right ovarian cyst, this is not simple.
[2020-01-31 18:29] VITALS: BP 138/71; PULSE 93; RESP 18
== END 2020-01-31 18:39 | disposition home or self-care (01) ==
LOC: EC 15:49
DX: O03.9 Complete or unspecified spontaneous abortion without complication (principal); N83.201 Unspecified ovarian cyst, right side; Z87.891 Personal history of nicotine dependence
CPT/HCPCS: 36415; 76801; 76817; 80048; 81001; 84702; 85025; 86900; 86901; 99284

== ENCOUNTER 2021-01-06 11:23 | Inpatient (IN) | payer BC, OTHER ==
--- NOTE | 2021-01-06 12:49 | US ---
EXAMINATION TYPE: US OB >= 14 wk fetus DATE OF EXAM: 01/06/2021 COMPARISON: None CLINICAL HISTORY: 40w2d EFW, JESSICA TECHNIQUE: Transabdominal (TA) GESTATIONAL AGE / DATING Physician Established: (40 weeks/2 days) EDC: 01/04/21 Dates by LMP: LMP unknown Dates by First Scan: No previous this is first scan Dates by Current Scan: (40 weeks/2 days) EDC: 01/11/21 SURVEY IUP: Single PLACENTA: Anterior PREVIA: No Previa JESSICA: 13.6 cm Normal CERVICAL LENGTH (transabdominal: norm > 3.0cm): 3.2 cm BIOMETRY PRESENTATION: Vertex LIE: Longitudinal BPD: 9.6 cm 39 weeks / 0 days HC: 34.2 cm 39 weeks / 3 days AC: 35.9 cm 39 weeks / 6 days FL: 7.6 cm 38 weeks / 6 days ESTIMATED WEIGHT IN GRAMS: 3784 grams ESTIMATED WEIGHT IN LBS/OZ: 8 lbs. 5 oz. HC/AC: 0.95 Normal FL/AC: 21% Normal HEART RATE: 140 bpm RHYTHM: Normal IMPRESSION: Limited survey. Single viable intrauterine corresponding to ultrasound age 39 weeks 2 days with estimated date of delivery January 11, 2021
[2021-01-08] MEDS ORDERED: CITRIC ACID-SODIUM CITRATE 15 ML CUP PO ONE (10:22)
[2021-01-08 10:48] LABS: Basophils % (A) 0 %; Eosinophils # (A) 0.1 k/uL (0-0.7); Eosinophils % (A) 1 %; HGB 10.1 gm/dL (11.4-16.0); Lymphocytes # (A) 1.7 k/uL (1.0-4.8); Lymphocytes % (A) 16 %; MCH 26.7 pg (25.0-35.0); MCHC 33.8 g/dL (31.0-37.0); MCV 78.9 fL (80.0-100.0); Mean Platelet Volume 9.3; Monocytes # (A) 0.3 k/uL (0-1.0); Monocytes % (A) 3 %; Neutrophils # (A) 8.4 k/uL (1.3-7.7); Neutrophils % (A) 78 %; Platelet Count 267 k/uL (150-450); Poikilocytosis Slight; RDW 15.1 % (11.5-15.5); WBC 10.8 k/uL (3.8-10.6)
[2021-01-08] MEDS ORDERED: ONDANSETRON 4 MG/2 ML VIAL ONE (12:07)
[2021-01-08] MEDS ORDERED: NALBUPHINE 10 MG/ML (1 ML AMP) ONE (12:07)
[2021-01-08] MEDS ORDERED: PHENYLEPHRINE-0.9% NACL SYG 1,000 MCG/10 ML SYRINGE ONE (12:07)
[2021-01-08] MEDS ORDERED: MORPHINE SULFATE (PF) 0.3 MG/0.3 ML SYR ONE (12:07)
[2021-01-08] MEDS ORDERED: OXYTOCIN 30 UNITS/500 ML NS BAG IV ONE (12:07)
[2021-01-08] MEDS ORDERED: KETOROLAC 15 MG/ML 1 ML VIAL ONE (12:07)
[2021-01-08] MEDS ORDERED: SIMETHICONE 80 MG CHEWABLE PO PRN (12:49)
[2021-01-08] MEDS ORDERED: diphenhydrAMINE 25 MG CAP PO PRN (12:49)
[2021-01-08] MEDS ORDERED: ZOLPIDEM 5 MG TAB PO PRN (12:49)
[2021-01-08] MEDS ORDERED: HYDROmorphone 2 MG TAB PO PRN ×2 (12:49)
[2021-01-08] MEDS ORDERED: diphenhydrAMINE 50 MG CAP PO PRN (12:49)
[2021-01-08] MEDS ORDERED: ONDANSETRON 4 MG/2 ML VIAL IVP PRN (12:49)
[2021-01-08] MEDS ORDERED: METOCLOPRAMIDE 5 MG/ML 2 ML VIAL IVP PRN (12:49)
[2021-01-08] MEDS ORDERED: NALOXONE 0.4 MG/ML 1 ML VIAL IV PRN (12:49)
[2021-01-08] MEDS ORDERED: diphenhydrAMINE 50 MG/ML 1 ML VIAL IVP PRN ×2 (12:49)
--- NOTE | 2021-01-08 12:55 | P.HPOB ---
History of Present Illness H&P Date: 01/08/21 Chief Complaint: IntrauterUterine at term: Prior section: Family planning Radha is a 25 she'll at 40 weeks 4 days gestation who ryes repeat section. She has had a desire to try for a but her cervix never became favorable. Ultrasound 2 days ago showed as noted weight of approximately 8 pounds. She is now ready for a repeat section with bilateral tubal occlusion with Filshie clips. Her course was generall y unremarkable and she is feeling well at this time pertinent labs did include B+ blood type, Rh and it was negative, rubella is immune, hepatitis B surface antigen/RPR/HIV/GBS were all negative. Risks/benefits/alternatives reviewed with patient in detail and all questions were answered for her prior to proceeding to the operative room. Category 1 tracing is noted prior to proceeding to the operative room. Past Medical History Past Medical History: No Reported History History of Any Multi-Drug Resistant Organisms: None Reported Past Surgical History: Section Additional Past Surgical History / Comment(s): previous c/s 2019 Past Anesthesia/Blood Transfusion Reactions: No Reported Reaction Past Psychological History: Anxiety, Bipolar, Depression Smoking Status: Former smoker, Never smoker Past Alcohol Use History: Occasional Past Drug Use History: None Reported - Past Family History Father Family Medical History: No Reported History Medications and Allergies Home Medications Medication Instructions Recorded Confirmed Type HYDROcodone/APAP 5-325MG [[place] 1 tab PO Q4HR PRN #30 tab 05/27/18 Rx 5-325] Ibuprofen [Motrin] 600 mg PO Q6HR PRN #30 tab 05/27/18 Rx Allergies Allergy/AdvReac Type Severity Reaction Status Date / Time No Known Allergies Allergy Verified 01/31/20 15:57 Exam Osteopathic Statement: *. No significant issues noted on an osteopathic structural exam other than those noted in the History and Physical/Consult. Vital Signs Temp Pulse Resp BP 01/08/21 10:22 97 F L 90 16 131/80 Intake and Output 01/07/21 01/08/21 01/08/21 22:59 06:59 14:59 Other: Weight 97.976 kg - OBG Physical Exam Breast: both: normal (no masses) Abdomen: bowel sounds normal, no diffuse tenderness, no bruit present, no guarding noted, no hepatomegaly, no splenomegaly, no mass Vulva: both: normal Vagina: normal moisture, no discharge Cervix: no lesion, no discharge Uterus: normal size, normal contour Adnexa: both: normal Anus/Rectum: normal perianal skin, no rectal mass, no hemorrhoids, heme negative Results Result Diagrams: 01/08/21 10:20 Abnormal Lab Results - Last 24 Hours (Table) 01/08/21 Range/Units 10:20 WBC 10.8 H (3.8-10.6) k/uL Hgb 10.1 L (11.4-16.0) gm/dL Hct 30.0 L (34.0-46.0) % MCV 78.9 L (80.0-100.0) fL Neutrophils # 8.4 H (1.3-7.7) k/uL
--- NOTE | 2021-01-08 12:58 | P.OP ---
Date of Procedure: 01/08/21 Preoperative Diagnosis: Intrauterine at term: Prior section: Family planning Postoperative Diagnosis: Same incidental notation of what appears to be a cystic area left side of the uterus likely from prior section Procedure(s) Performed: Repeat low transverse section with bilateral tubal occlusion Filshie clips Anesthesia: spinal Surgeon: Oswald Ruiz Commissioned [employer] Officer #1: Angélica Zavala Estimated Blood Loss (ml): 290 IV fluids (ml): 1,000 Urine output (ml): 300 Pathology: none sent Condition: stable Disposition: floor Operative Findings: Cystic area along the left side of uterus just anterior to uterine vascularity and just lateral to are surgical incision. It appeared to be approximately 4-5 cm in size like we will repeat ultrasound once recovered and reassess. Otherwise male scores of 8 and 9 at one and 5 minutes respectively and weight was 9 lbs. 1 oz. Description of Procedure: Patient was taken to the operating suite where a spinal anesthetic was found be adequate. She was prepped and draped in normal sterile fashion and placed in the dorsal supine position with leftward tilt. Initially a Pfannenstiel skin incision was made and this incision was then carried through to the underlying layer of the fashion with second knife. Fascia was then nicked in the midline and this opening was extended laterally with Romero scissors. Superior and inferior aspect of this incision were then grasped tented up and bluntly and sharply dissected off the rectus muscles. Rectus muscles were then divided the midline and sharp dissection through the peritoneum was performed. This opening was then extended superiorly and inferiorly with good visualization of both bowel bladder. Bladder blade was then placed bladder flap identified and entered with Metzenbaum scissors. Was carried across face uterus with Metzenbaum scissors and bladder flap was digitally created. Knife was then used to incise the uterus. This opening was fully developed hemostat and extended bluntly. Head was then H medically delivered followed by reduction of nuchal cord 1 and then anterior and posterior shoulders were delivered with gentle downward upper traction from right occiput anterior position. Once baby was fully delivered nursery personnel was present to assume care and the umbilical cord was clamped cut usual fashion. Placenta was then delivered intact Pitocin was added to the IV. Uterus was then exteriorized cleared of clots and debris and closed in 2 layers with 0 Vicryl suture. Cystic area was noted on removal of the uterus from the abdomen and was not seen prior to this. Once excellent hemostasis was obtained fishhooks were placed on the fallopian tubes 2-3 cm from uterine cornu. With no bleeding the mesosalpinx blood and debris was suctioned from the posterior cul-de-sac and the uterus was reinserted into the abdomen. Reinspection of the incision verified hemostasis. 0 Vicryl was then used to reapproximate the peritoneal layer following use of hemostats to delineate boundaries. Fascial layer was closed with 0 Vicryl suture. One layer of 3-0 Vicryl was placed in deep subcuticular tissues to reapproximate skin and close space. Skin was then closed with 3-0 Vicryl subcuticular. Sponge, lap, needle counts were all correct 2. Patient was then taken to the recovery room in stable and satisfactory condition.
[2021-01-08] MEDS: ACETAMINOPHEN TAB 500 MG TAB PO SCH (16:10)
[2021-01-08] MEDS: LACTATED RINGERS 1,000 ML IV SCH ×2 (19:24→21:40)
[2021-01-08] MEDS: IBUPROFEN 600 MG TAB PO SCH (19:25)
[2021-01-08] MEDS: KETOROLAC 15 MG/ML 1 ML VIAL IVP SCH (19:25)
[2021-01-09] MEDS: KETOROLAC 15 MG/ML 1 ML VIAL IVP SCH ×3 (02:21→17:01)
[2021-01-09] MEDS: SENNOSIDES-DOCUSATE SODIUM 1 EACH TAB PO SCH ×3 (03:45→20:07)
[2021-01-09] MEDS: ACETAMINOPHEN TAB 500 MG TAB PO SCH ×4 (03:45→16:06)
[2021-01-09] MEDS: IBUPROFEN 600 MG TAB PO SCH ×4 (03:45→20:06)
--- NOTE | 2021-01-09 06:25 | P.PN ---
Progress Note - Text Progress Note Date: 01/09/21 25-year-old female status post section with Duramorph spinal. Patient doing well with no issues. Ambulating, tolerating diet, no motor sensory deficits. No back pain. Patient does endorse some lower abdominal discomfort VAS ranges from a 1-3 out of 10 in severity. She also endorses some pruritus. Overall patient is doing well
[2021-01-09 07:24] LABS: Basophils % (A) 0 %; Eosinophils # (A) 0.1 k/uL (0-0.7); Eosinophils % (A) 1 %; HCT 30.2 % (34.0-46.0); HGB 9.7 gm/dL (11.4-16.0); Hypochromasia Slight; Lymphocytes # (A) 1.7 k/uL (1.0-4.8); Lymphocytes % (A) 18 %; MCH 26.2 pg (25.0-35.0); MCV 81.8 fL (80.0-100.0); Mean Platelet Volume 9.7; Monocytes # (A) 0.2 k/uL (0-1.0); Monocytes % (A) 2 %; Neutrophils # (A) 7.4 k/uL (1.3-7.7); Neutrophils % (A) 78 %; Platelet Count 210 k/uL (150-450); Poikilocytosis Slight; RBC 3.69 m/uL (3.80-5.40); RDW 15.6 % (11.5-15.5); WBC 9.4 k/uL (3.8-10.6)
[2021-01-09] MEDS: LACTATED RINGERS 1,000 ML IV SCH ×3 (08:35→23:39)
--- NOTE | 2021-01-09 09:50 | P.PN ---
Progress Note - Text Progress Note Date: 01/09/21 Overall doing well this morning. We'll plan continue care. She is requesting discharge home tonight we will reevaluate her late this afternoon earlier this evening and determine stability for discharge. All is somewhat atypical to discharge from section postop day 1, if she has
--- NOTE | 2021-01-09 16:37 | P.MSEPDOC ---
Presenting Problems - Arrival Data Date of Arrival on Unit: 01/09/21 Time of Arrival on Unit: 10:00 Mode of Transport: Ambulatory - Complaint OB-Reason for Admission/Chief Complaint: NST Comment: ultrasound Medical History - Information : 4 Para: 1 Term: 1 : 0 Abortions: Spontaneous or Elective: 2 Number of Living Children: 1 - Gestational Age Gestational Age by DARREN (wks/days): 40 Weeks and 5 Days Review of Systems - Review of Systems Constitutional: No problems Breast: No problems ENT: No problems Cardiovascular: No problems Respiratory: No problems Gastrointestinal: No problems Genitourinary: No problems Musculoskeletal: No problems Neurological: No problems Skin: No problems Vital Signs - Temperature Temperature: 97.7 F Temperature Source: Oral - Pulse Right Pulse Rate: 62 Pulse Assessment Method: Pulse Oximetry - Respirations Respiratory Rate: 15 Oxygen Delivery Method: Room Air O2 Sat by Pulse Oximetry: 98 - Blood Pressure Right Arm Blood Pressure: 122/77 Blood Pressure Mean: 92 Blood Pressure Source: Automatic Cuff Medical Screen Scoring - Assessment - Baby A Baseline FHR: 140 Heart Rate - NICHD Category: Category I (Normal) NST: Reactive Physician Notification - Physician Notified Physician Notified Date: 01/06/21 Physician Notified Time: 12:53 Physician: Oswald Ruiz Order Received: Yes (discharge home with follow up instructions.) Maternal Triage Index - Maternal Triage Index Presenting for scheduled procedure w/no complaint: No - Stat/Priority 1 Stat Priority 1: No - Urgent/Priority 2 Urgent Priority 2: No - Prompt/Priority 3 Prompt Priority 3: No - Non-Urgent/Priority 4 Non-Urgent Priority 4: No - Scheduled/Requesting Priority 5 Scheduled/Requesting Priority 5: Yes Criteria Met for Priority 5: over from office with orders for NST and ultrasound for JESSICA&EFW. Disposition - Disposition OB Disposition: Discharge to home Discharge Date: 01/06/21 Discharge Time: 13:01 I agree with the RN Medical Screening Exam: Yes Case reviewed; plan agreed upon as documented in EMR&OBIX.: Yes Diagnosis: RELATED CONDITIONS, UNSPECIFIED, THIRD TRIMESTER
[2021-01-10] MEDS: ACETAMINOPHEN TAB 500 MG TAB PO SCH ×3 (00:06→07:56)
[2021-01-10] MEDS: KETOROLAC 15 MG/ML 1 ML VIAL IVP SCH ×2 (03:01→06:37)
[2021-01-10] MEDS: IBUPROFEN 600 MG TAB PO SCH ×2 (03:02→04:59)
--- NOTE | 2021-01-10 07:50 | P.DS ---
Providers Date of admission: 01/08/21 10:05 Expected date of discharge: 01/10/21 Attending physician: Oswald Ruiz Primary care physician: Stated None Hospital Course: Chata is doing very well post op day 2. She is ambulating, voiding and tolerating her diet. She voices no complaints. She does relate that last night she was feeling little bit hot has no fever and is otherwise feeling fine this morning. We'll continue on having her check her temperatures at home as needed. Prescription for Motrin was 4 to her pharmacy. She voices no other complaints and is requesting discharge home today. Her vital signs are stable and she is again afebrile. Heart regular, lungs clear, extremities without pain. Abdomen soft and uterus is firm. Incision is clean dry and intact. Assessment postop day 2. Plan discharged home follow up with me in 1 week. Discharge instructions were otherwise thoroughly reviewed. Patient Condition at Discharge: Good Plan - Discharge Summary New Discharge Prescriptions: New Ibuprofen [Motrin] 600 mg PO Q6HR PRN #30 tab PRN Reason: Pain No Action HYDROcodone/APAP 5-325MG [[place] 5-325] 1 tab PO Q4HR PRN #30 tab PRN Reason: Pain Ibuprofen [Motrin] 600 mg PO Q6HR PRN #30 tab PRN Reason: Pain Discharge Medication List HYDROcodone/APAP 5-325MG [[place] 5-325] 1 tab PO Q4HR PRN #30 tab 05/27/18 [Rx] Ibuprofen [Motrin] 600 mg PO Q6HR PRN #30 tab 05/27/18 [Rx] Ibuprofen [Motrin] 600 mg PO Q6HR PRN #30 tab 01/10/21 [Rx] Follow up Appointment(s)/Referral(s): Oswald Ruiz DO [Doctor of Osteopathic Medicine] - 1 Week (01-17-2021 at 02:00 p.m.) Activity/Diet/Wound Care/Special Instructions: No heavy lifting, limit stairs and driving, and pelvic rest. If any high temperatures, heavy bleeding, or severe pain call my office Discharge Disposition: HOME SELF-CARE
[2021-01-10 08:22] VITALS: BP 136/82; PULSE 68; RESP 18; TEMP 98.6
[2021-01-10] MEDS: SENNOSIDES-DOCUSATE SODIUM 1 EACH TAB PO SCH (08:22)
== END 2021-01-10 11:45 | disposition home or self-care (01) | DRG 785 ==
LOC: FBPOP 11:23 → 4FBP 01-08 10:05
PROVIDERS: ADMIT Obstetrics & Gynecology; ATTEND Obstetrics & Gynecology
PROC: 0UL70CZ Occlusion of Bilateral Fallopian Tubes with Extraluminal Device, Open Approach (ICD-10-PCS; principal; 2021-01-08 12:07)
PROC: 10D00Z1 Extraction of Products of Conception, Low, Open Approach (ICD-10-PCS; principal; 2021-01-08 12:07)
DX: O34.211 Maternal care for low transverse scar from previous cesarean delivery (principal); Z30.2 Encounter for sterilization; F31.9 Bipolar disorder, unspecified; F41.9 Anxiety disorder, unspecified; O69.81X0 Labor and delivery complicated by cord around neck, without compression, not applicable or unspecified; Z37.0 Single live birth; O99.344 Other mental disorders complicating childbirth; L29.9 Pruritus, unspecified; Z3A.40 40 weeks gestation of pregnancy; Z87.891 Personal history of nicotine dependence
CPT/HCPCS: 59025; 76805; 85025; 86850; 86900; 86901; 99213

== ENCOUNTER → 2021-04-08 | Outpatient (CLI) | payer OTHER ==
--- NOTE | 2021-04-08 16:44 | US ---
EXAMINATION TYPE: US pelvic complete DATE OF EXAM: 04/08/2021 COMPARISON: US CLINICAL HISTORY: N85.8 Uterine cyst. , C section x 2. TECHNIQUE: Transabdominal (TA). Transabdominal sonographic images of the pelvis were acquired. Date of LMP: 03/24/21 EXAM MEASUREMENTS: Uterus: 10.7 x 6.2 x 4.4 cm Endometrial Stripe: 1.5 cm Right Ovary: 3.0 x 2.3 x 24 cm Left Ovary: 2.6 x 2.2 x 1.7 cm 1. Uterus: Anteverted 2. Endometrium: thickness wnl for day 16LMP, cyst noted = 0.6 x 0.6 x 0.5cm within right endometriu m at periphery of endometrium and myometrial border. 3. Right Ovary: multiple small follicles 4. Left Ovary: multiple small follicles 5. Bilateral Adnexa: wnl 6. Posterior cul-de-sac: wnl IMPRESSION: 1. No acute suspicious abnormality
== END | disposition home or self-care (01) ==
LOC: RADUSWWP 08:17
PROVIDERS: ATTEND Obstetrics & Gynecology
DX: N85.8 Other specified noninflammatory disorders of uterus (principal)
CPT/HCPCS: 76856

== ENCOUNTER 2021-11-20 15:10 | Emergency (ER) | payer BC, OTHER ==
--- NOTE | 2021-11-20 17:11 | ED ---
Female Urogenital HPI - General Chief complaint: OB/Uterine Contractions Stated complaint: Sent by OBGYN-needs US Time Seen by Provider: 11/20/21 17:07 Source: patient Mode of arrival: ambulatory Limitations: no limitations - History of Present Illness Initial comments: Patient is a 26-year-old female presents the emergency room with continued positive test after taking an abortive medication last month. She was advised by her primary care provider to come to the emergency room for further evaluation of her potential . She is a with 2 miscarriages prior to having her 2 children that are 3 and years old and 10 months. She reports complications of preeclampsia with her last child consequently she underwent a tubal ligation by Dr. Ruiz at the time of her 10 months ago. She reports that she had her last known menstrual cycle in September of this year on October 19 she tested positive for urine test at home and [facility] to [facility] October 23 where she received a 2 step oral abortive treatment. She reports that she started bleeding and bled for approximately 10 days and then had several days where she did not bleed afterwards she had another round of bleeding that began 5 days ago and stopped today. She took another urine test today which was positive. She denies any other significant past medical history and is not taking any medications at this time. Overall she was feeling well however she is concerned regarding this possible . - Related Data Previous Rx's Medication Instructions Recorded HYDROcodone/APAP 5-325MG [[place] 1 tab PO Q4HR PRN #30 tab 05/27/18 5-325] Ibuprofen [Motrin] 600 mg PO Q6HR PRN #30 tab 05/27/18 Ibuprofen [Motrin] 600 mg PO Q6HR PRN #30 tab 01/10/21 Allergies Allergy/AdvReac Type Severity Reaction Status Date / Time No Known Allergies Allergy Verified 11/20/21 17:05 Review of Systems ROS Statement: Those systems with pertinent positive or pertinent negative responses have been documented in the HPI. ROS Other: All systems not noted in ROS Statement are negative. Past Medical History Past Medical History: No Reported History History of Any Multi-Drug Resistant Organisms: None Reported Past Surgical History: Section, Tubal Ligation Additional Past Surgical History / Comment(s): previous c/s 2019 Past Anesthesia/Blood Transfusion Reactions: No Reported Reaction Past Psychological History: Anxiety, Bipolar, Depression Smoking Status: Former smoker Past Alcohol Use History: Occasional Past Drug Use History: None Reported - Past Family History Father Family Medical History: No Reported History General Exam Limitations: no limitations General appearance: alert, in no apparent distress Head exam: Present: atraumatic, normocephalic, normal inspection Eye exam: Present: normal appearance, PERRL, EOMI. Absent: scleral icterus, conjunctival injection, periorbital swelling ENT exam: Present: normal exam, mucous membranes moist Neck exam: Present: normal inspection Respiratory exam: Present: normal lung sounds bilaterally. Absent: respiratory distress, wheezes, rales, rhonchi, stridor Cardiovascular Exam: Present: regular rate, normal rhythm, normal heart sounds. Absent: systolic murmur, diastolic murmur, rubs, gallop, clicks GI/Abdominal exam: Present: soft, normal bowel sounds. Absent: distended, tenderness, guarding, rebound, rigid Extremities exam: Absent: pedal edema, joint swelling Back exam: Present: normal inspection Neurological exam: Present: alert, oriented X3, CN II-XII intact Psychiatric exam: Present: normal affect, normal mood Skin exam: Present: warm, dry, intact, normal color. Absent: rash Course Vital Signs 11/20/21 17:03 Temperature 98 F Pulse Rate 70 Respiratory 16 Rate Blood Pressure 169/99 O2 Sat by Pulse 100 Oximetry Medical Decision Making - Medical Decision Making Positive urine test will defer repeating at this time. Will check OB ultrasound. Ultrasound of the uterus 3 revealed no intrauterine or atopic . Information discussed with patient and advise no further need for urine testing. Case discussed with Dr. Guerrier. Will discharge patient home with follow-up with her PCP as needed. - Radiology Data Radiology results: report reviewed, image reviewed Transabdominal ultrasound shows no intrauterine seen normal-appearing anatomy transvaginally with no suspicious features. No signs of ectopic at this time. Disposition Clinical Impression: Positive urine test, Dysmenorrhea Disposition: HOME SELF-CARE Condition: Good Instructions (If sedation given, give patient instructions): Dysmenorrhea (ED) Additional Instructions: Please follow-up with your primary care provider. Drink plenty of fluids. Her cycles may continue to be irregular for several more cycles. Please return to the Emergency Department if symptoms worsen or any other concerns. Is patient prescribed a controlled substance at d/c from ED?: No Referrals: Regan Roy DO [Primary Care Provider] - 1-2 days Time of Disposition: 18:18
--- NOTE | 2021-11-20 18:03 | US ---
EXAMINATION TYPE: Transabdominal DATE OF EXAM: 11/20/2021 5:33 PM COMPARISON: NONE CLINICAL HISTORY: positive test after plan B. , , patient had tubal ligation 1 0 months ago, positive test in October, took Plan B pill, had period this month but b leeding started after it ended, patient took test and it was positive EXAM PERFORMED: OBTA EXAM MEASUREMENTS: GESTATIONAL AGE / DATING Physician Established: Not yet established Dates by LMP: (1 weeks/0 days) EDC: 08/21/2022 Dates by First Scan: No previous this is first scan Dates by Current Scan for: No IUP seen at this time MATERNAL ANATOMY Uterus: 7.7 x 5.8 x 4.1cm Endometrium: 1.3cm Right Ovary: 3.0 x 1.6 x 1.6cm Left Ovary: 1.8 x 1.6 x 1.8cm Post CDS / Adnexa: wnl Presence of free fluid: no Presence of corpus luteal cyst: no Presence of subchorionic bleed: no Date of LMP: 11/13/2021 Beta HcG (if available): did not draw IMPRESSION: Normal appearing anatomy transabdominally with no suspicious features to require TV approach. No obvi ous signs of ectopic at this time.
[2021-11-20 18:35] VITALS: BP 108/78; PULSE 77; RESP 18; TEMP 98.3
== END 2021-11-20 18:31 | disposition home or self-care (01) ==
LOC: EC 15:10
DX: N94.6 Dysmenorrhea, unspecified (principal); Z32.01 Encounter for pregnancy test, result positive; Z87.891 Personal history of nicotine dependence
CPT/HCPCS: 76801; 99283

== ENCOUNTER 2023-01-07 10:06 | Emergency (ER) | payer BC, OTHER ==
[2023-01-07] MEDS ORDERED: SODIUM CHLORIDE 0.9% 1,000 ML IV STA (10:54)
[2023-01-07] MEDS ORDERED: ONDANSETRON 4 MG/2 ML VIAL IVP STA (10:56)
[2023-01-07 11:37] LABS: Appearance,Urine Clear (Clear); Bilirubin,Urine Negative (Negative); Blood,Urine Negative (Negative); Color,Urine Colorless; Glucose,Urine (UA) Negative (Negative); Ketones,Urine Negative (Negative); Leukocyte Esterase,Urine Negative (Negative); Nitrite,Urine Negative (Negative); Protein,Urine Negative (Negative); Specific Gravity,Urine 1.005 (1.001-1.035); Urobilinogen,Urine <2.0 mg/dL (<2.0)
[2023-01-07 11:42] LABS: Basophils % (A) 0 %; Eosinophils # (A) 0.1 k/uL (0-0.7); Eosinophils % (A) 1 %; HCT 42.9 % (34.0-46.0); HGB 14.7 gm/dL (11.4-16.0); Lymphocytes # (A) 1.8 k/uL (1.0-4.8); Lymphocytes % (A) 21 %; MCHC 34.4 g/dL (31.0-37.0); MCV 87.3 fL (80.0-100.0); Monocytes # (A) 0.4 k/uL (0-1.0); Monocytes % (A) 4 %; Neutrophils # (A) 6.3 k/uL (1.3-7.7); Neutrophils % (A) 72 %; Platelet Count 284 k/uL (150-450); RBC 4.92 m/uL (3.80-5.40); RDW 13.1 % (11.5-15.5); WBC 8.8 k/uL (3.8-10.6)
[2023-01-07 11:58] LABS: ALT 20 U/L (4-34); AST 22 U/L (14-36); African American GFR (CKD) >90 (>60 ml/min/1.73 sqM); Albumin 5.1 g/dL (3.5-5.0); Alkaline Phosphatase 75 U/L (38-126); Anion Gap 11 mmol/L; Blood Urea Nitrogen 11 mg/dL (7-17); Carbon Dioxide 28 mmol/L (22-30); Chloride 102 mmol/L (98-107); Glucose 88 mg/dL (74-99); Non-African American GFR(CKD) >90 (>60 ml/min/1.73 sqM); Sodium 141 mmol/L (137-145); Total Bilirubin 0.6 mg/dL (0.2-1.3); Total Protein 8.5 g/dL (6.3-8.2)
--- NOTE | 2023-01-07 12:05 | ED ---
General Adult HPI - General Chief complaint: Nausea/Vomiting/Diarrhea Stated complaint: fatigue Time Seen by Provider: 01/07/23 10:38 Source: patient Mode of arrival: ambulatory Limitations: no limitations - History of Present Illness Initial comments: Patient is a 27-year-old female who presents the emergency department with a chief complaint of fatigue. Patient reports fatigue and nausea since Wednesday. States she has had increased thirst and in turn has been urinating more frequently. She denies urinary urgency, dysuria. Patient feels lightheaded. No fever, chills, upper respiratory symptoms. No chest pain or shortness of breath. No abdominal pain, diarrhea, or vomiting. No vaginal discharge, concerning for sexually transmitted infections. Patient was recently on steroids and antibiotics for infected poison estella. States she stopped using the medication due to not feeling well. - Related Data Previous Rx's Medication Instructions Recorded Ondansetron Odt [Zofran Odt] 4 mg PO Q8HR PRN #10 tab 01/07/23 Allergies Allergy/AdvReac Type Severity Reaction Status Date / Time No Known Allergies Allergy Verified 01/07/23 12:45 Review of Systems ROS Statement: Those systems with pertinent positive or pertinent negative responses have been documented in the HPI. ROS Other: All systems not noted in ROS Statement are negative. Past Medical History Past Medical History: No Reported History History of Any Multi-Drug Resistant Organisms: None Reported Past Surgical History: Section, Tubal Ligation Additional Past Surgical History / Comment(s): previous c/s 2019 Past Anesthesia/Blood Transfusion Reactions: No Reported Reaction Past Psychological History: Anxiety, Bipolar, Depression Smoking Status: Former smoker Past Alcohol Use History: Occasional Past Drug Use History: None Reported - Past Family History Father Family Medical History: No Reported History General Exam Limitations: no limitations General appearance: alert Eye exam: Present: normal appearance, PERRL, EOMI. Absent: scleral icterus, conjunctival injection, periorbital swelling ENT exam: Present: normal oropharynx, TM's normal bilaterally Respiratory exam: Present: normal lung sounds bilaterally. Absent: respiratory distress, wheezes, rales, rhonchi, stridor Cardiovascular Exam: Present: regular rate, normal rhythm, normal heart sounds. Absent: systolic murmur, diastolic murmur, rubs, gallop, clicks GI/Abdominal exam: Present: soft, normal bowel sounds. Absent: distended, tenderness, guarding, rebound, rigid Neurological exam: Present: alert Psychiatric exam: Present: normal affect, normal mood Skin exam: Present: warm, dry, intact, normal color. Absent: rash Course Vital Signs 01/07/23 01/07/23 10:22 13:37 Temperature 98.9 F 98.2 F Pulse Rate 99 67 Respiratory 18 16 Rate Blood Pressure 145/95 132/93 O2 Sat by Pulse 100 99 Oximetry Medical Decision Making - Medical Decision Making EKG taken at 11:03, interpreted by myself Sinus rhythm, no ST changes Ventricular rate 71, CA interval 140, QRS duration 79, QTC 392 Was pt. sent in by a medical professional or institution (, PA, QUALITY ASSURANCE SUPERVISOR FINAL, urgent care, hospital, or penitentiary...) When possible be specific @ -No Did you speak to anyone other than the patient for history (EMS, parent, family, police, friend...)? What history was obtained from this source @ -No Did you review nursing and triage notes (agree or disagree)? Why? @ -I reviewed and agree with nursing and triage notes Were old charts reviewed (outside hosp., previous admission, EMS record, old EKG, old radiological studies, urgent care reports/EKG's, penitentiary records)? Report findings @ -No old charts were reviewed Differential Diagnosis (chest pain, altered mental status, abdominal pain women, abdominal pain men, vaginal bleeding, weakness, fever, dyspnea, syncope, headache, dizziness, GI bleed, back pain, seizure, CVA, palpatations, mental health)? @ -not applicable EKG interpreted by me (3pts min.). @ -As above X-rays interpreted by me (1pt min.). @ -None done CT interpreted by me (1pt min.). @ -None done U/S interpreted by me (1pt. min.). @ -None done What testing was considered but not performed or refused? (CT, X-rays, U/S, labs)? Why? @ -None What meds were considered but not given or refused? Why? @ -None Did you discuss the management of the patient with other professionals (professionals i.e. , PA, QUALITY ASSURANCE SUPERVISOR FINAL, lab, RT, psych nurse, health and social care teacher, doughnut dough mixer, teacher, information assurance officer, outpatient case manager)? Give summary @ -No Was smoking cessation discussed for >3mins.? @ -No Was critical care preformed (if so, how long)? @ -No Were there social determinants of health that impacted care today? How? (Homelessness, low income, unemployed, alcoholism, drug addiction, transportation, low edu. Level, literacy, decrease access to med. care, retirement, rehab)? @ -No Was there de-escalation of care discussed even if they declined (Discuss DNR or withdrawal of care, Hospice)? DNR status @ -No What co-morbidities impacted this encounter? (DM, HTN, Smoking, COPD, CAD, Cancer, CVA, ARF, Chemo, Hep., AIDS, mental health diagnosis, sleep apnea, morbid obesity)? @ -None Was patient admitted / discharged? Hospital course, mention meds given and route, prescriptions, significant lab abnormalities, going to OR and other pertinent info. @ Labs obtained. No leukocytosis. No electrolyte abnormalities. is not detected. Urine does not reflect infection or other acute process. Viral testing is negative. Discussed with patient. Patient improved after saline bolus and Zofran. She will follow-up with primary care provider for further evaluation and management. Undiagnosed new problem with uncertain prognosis? @ -[No Dug Therapy requiring intensive monitoring for toxicity (Heparin, Nitro, Insulin, Cardizem)? @ -[No] Were any procedures done? @ -[No] Diagnosis/symptom? @ Nausea, lightheadedness, fatigue Acute, or Chronic, or Acute on Chronic? @ -Acute Uncomplicated (without systemic symptoms) or Complicated (systemic symptoms)? @ -Uncomplicated Side effects of treatment? @ -[No] Exacerbation, Progression, or Severe Exacerbation? @ -[No] Poses a threat to life or bodily function? How? (Chest pain, USA, MD, pneumonia, PE, COPD, DKA, ARF, appy, cholecystitis, CVA, Diverticulitis, Homicidal, Suicidal, threat to staff... and all critical care pts) @ -[No] Dr. Poe is my attending - Lab Data Result diagrams: 01/07/23 10:55 01/07/23 10:55 Lab Results 01/07/23 01/07/23 01/07/23 Range/Units 10:55 10:55 11:16 WBC 8.8 (3.8-10.6) k/uL RBC 4.92 (3.80-5.40) m/uL Hgb 14.7 (11.4-16.0) gm/dL Hct 42.9 (34.0-46.0) % MCV 87.3 (80.0-100.0) fL MCH 30.0 (25.0-35.0) pg MCHC 34.4 (31.0-37.0) g/dL RDW 13.1 (11.5-15.5) % Plt Count 284 (150-450) k/uL MPV 8.0 Neutrophils % 72 % Lymphocytes % 21 % Monocytes % 4 % Eosinophils % 1 % Basophils % 0 % Neutrophils # 6.3 (1.3-7.7) k/uL Lymphocytes # 1.8 (1.0-4.8) k/uL Monocytes # 0.4 (0-1.0) k/uL Eosinophils # 0.1 (0-0.7) k/uL Basophils # 0.0 (0-0.2) k/uL Sodium 141 (137-145) mmol/L Potassium 4.0 (3.5-5.1) mmol/L Chloride 102 (98-107) mmol/L Carbon Dioxide 28 (22-30) mmol/L Anion Gap 11 mmol/L BUN 11 (7-17) mg/dL Creatinine 0.73 (0.52-1.04) mg/dL Est GFR (CKD-EPI)AfAm >90 (>60 ml/min/1.73 sqM) Est GFR (CKD-EPI)NonAf >90 (>60 ml/min/1.73 sqM) Glucose 88 (74-99) mg/dL Calcium 10.0 (8.4-10.2) mg/dL Total Bilirubin 0.6 (0.2-1.3) mg/dL AST 22 (14-36) U/L ALT 20 (4-34) U/L Alkaline Phosphatase 75 (38-126) U/L Total Protein 8.5 H (6.3-8.2) g/dL Albumin 5.1 H (3.5-5.0) g/dL Urine Color Urine Appearance (Clear) Urine pH (5.0-8.0) Ur Specific [place] (1.001-1.035) Urine Protein (Negative) Urine Glucose (UA) (Negative) Urine Ketones (Negative) Urine Blood (Negative) Urine Nitrite (Negative) Urine Bilirubin (Negative) Urine Urobilinogen (<2.0) mg/dL Ur Leukocyte Esterase (Negative) Urine HCG, Qual (Not Detectd) Influenza Type A (PCR) Not Detected (Not Detectd) Influenza Type B (PCR) Not Detected (Not Detectd) RSV (PCR) Not Detected (Not Detectd) SARS-CoV-2 (PCR) Not Detected (Not Detectd) 01/07/23 01/07/23 Range/Units 11:17 11:17 WBC (3.8-10.6) k/uL RBC (3.80-5.40) m/uL Hgb (11.4-16.0) gm/dL Hct (34.0-46.0) % MCV (80.0-100.0) fL MCH (25.0-35.0) pg MCHC (31.0-37.0) g/dL RDW (11.5-15.5) % Plt Count (150-450) k/uL MPV Neutrophils % % Lymphocytes % % Monocytes % % Eosinophils % % Basophils % % Neutrophils # (1.3-7.7) k/uL Lymphocytes # (1.0-4.8) k/uL Monocytes # (0-1.0) k/uL Eosinophils # (0-0.7) k/uL Basophils # (0-0.2) k/uL Sodium (137-145) mmol/L Potassium (3.5-5.1) mmol/L Chloride (98-107) mmol/L Carbon Dioxide (22-30) mmol/L Anion Gap mmol/L BUN (7-17) mg/dL Creatinine (0.52-1.04) mg/dL Est GFR (CKD-EPI)AfAm (>60 ml/min/1.73 sqM) Est GFR (CKD-EPI)NonAf (>60 ml/min/1.73 sqM) Glucose (74-99) mg/dL Calcium (8.4-10.2) mg/dL Total Bilirubin (0.2-1.3) mg/dL AST (14-36) U/L ALT (4-34) U/L Alkaline Phosphatase (38-126) U/L Total Protein (6.3-8.2) g/dL Albumin (3.5-5.0) g/dL Urine Color Colorless Urine Appearance Clear (Clear) Urine pH 7.0 (5.0-8.0) Ur Specific [place] 1.005 (1.001-1.035) Urine Protein Negative (Negative) Urine Glucose (UA) Negative (Negative) Urine Ketones Negative (Negative) Urine Blood Negative (Negative) Urine Nitrite Negative (Negative) Urine Bilirubin Negative (Negative) Urine Urobilinogen <2.0 (<2.0) mg/dL Ur Leukocyte Esterase Negative (Negative) Urine HCG, Qual Not Detected (Not Detectd) Influenza Type A (PCR) (Not Detectd) Influenza Type B (PCR) (Not Detectd) RSV (PCR) (Not Detectd) SARS-CoV-2 (PCR) (Not Detectd) Disposition Clinical Impression: Fatigue, Nausea, Lightheadedness Disposition: HOME SELF-CARE Condition: Good Instructions (If sedation given, give patient instructions): Acute Nausea and Vomiting (ED) Additional Instructions: Take medication as directed. Please follow-up with your primary care provider in 1-2 days. Return to the emergency department if you experience new, concerning, or worsening symptoms. Prescriptions: Ondansetron Odt [Zofran Odt] 4 mg PO Q8HR PRN #10 tab PRN Reason: Nausea Is patient prescribed a controlled substance at d/c from ED?: No Referrals: None,Stated [Primary Care Provider] - 1-2 days
[2023-01-07 13:39] VITALS: BP 132/93; PULSE 67; RESP 16; TEMP 98.2
== END 2023-01-07 13:46 | disposition home or self-care (01) ==
LOC: EC 10:06
DX: R53.83 Other fatigue (principal); R11.10 Vomiting, unspecified; R42 Dizziness and giddiness; Z86.59 Personal history of other mental and behavioral disorders; Z87.891 Personal history of nicotine dependence; Z20.822 Contact with and (suspected) exposure to COVID-19
CPT/HCPCS: 36415; 93005; 80053; 85025; 81003; 81025; 87636; 99284; 96374; 96361; J2405

== ENCOUNTER 2023-10-09 21:58 | Emergency (ER) | payer BC, OTHER ==
[2023-10-09 23:27] LABS: Amorphous Sediment,Urine Rare /hpf; Appearance,Urine Clear (Clear); Bacteria,Urine Rare /hpf; Bilirubin,Urine Negative (Negative); Blood,Urine Trace (Negative); Color,Urine Light Yellow; Glucose,Urine (UA) Negative (Negative); Ketones,Urine Negative (Negative); Leukocyte Esterase,Urine Negative (Negative); Mucus,Urine Rare /hpf; Nitrite,Urine Negative (Negative); PH, Urine 6.5 (5.0-8.0); Protein,Urine Negative (Negative); RBC,Urine 1 /hpf (0-5); Specific Gravity,Urine 1.019 (1.001-1.035); Squamous Epithelial Cell,Urine 2 /hpf (0-4); Urobilinogen,Urine <2.0 mg/dL (<2.0); WBC,Urine 2 /hpf (0-5)
--- NOTE | 2023-10-10 00:48 | ED ---
General Adult HPI - General Chief complaint: Abdominal Pain Stated complaint: abd pain Time Seen by Provider: 10/09/23 23:37 Source: patient, RN notes reviewed, old records reviewed Mode of arrival: ambulatory Limitations: no limitations - History of Present Illness Initial comments: 28-year-old female presenting for evaluation of epigastric pain, burning in nature, related to food. Patient is currently 11 weeks . She denies any lower abdominal pain no vaginal bleeding. She is following with obstetrics and has confirmed IUP. She is also having some diarrhea. - Related Data Previous Rx's Medication Instructions Recorded Ondansetron Odt [Zofran Odt] 4 mg PO Q8HR PRN #10 tab 01/07/23 Allergies Allergy/AdvReac Type Severity Reaction Status Date / Time No Known Allergies Allergy Verified 10/09/23 22:22 Review of Systems ROS Statement: Those systems with pertinent positive or pertinent negative responses have been documented in the HPI. ROS Other: All systems not noted in ROS Statement are negative. Past Medical History Past Medical History: No Reported History History of Any Multi-Drug Resistant Organisms: None Reported Past Surgical History: Section, Tubal Ligation Additional Past Surgical History / Comment(s): previous c/s 2019 Past Anesthesia/Blood Transfusion Reactions: No Reported Reaction Past Psychological History: Anxiety, Bipolar, Depression Smoking Status: Former smoker Past Alcohol Use History: Occasional Past Drug Use History: None Reported - Past Family History Father Family Medical History: No Reported History General Exam Limitations: no limitations General appearance: alert, in no apparent distress Head exam: Present: atraumatic, normocephalic Eye exam: Present: normal appearance, PERRL ENT exam: Present: normal exam Neck exam: Present: normal inspection. Absent: tenderness, meningismus Respiratory exam: Present: normal lung sounds bilaterally. Absent: respiratory distress, wheezes Cardiovascular Exam: Present: normal rhythm, tachycardia GI/Abdominal exam: Present: soft, tenderness (Minimal epigastric). Absent: distended Neurological exam: Present: alert, oriented X3 Psychiatric exam: Present: normal affect, normal mood Skin exam: Present: warm, dry, intact. Absent: cyanosis, diaphoretic Course Vital Signs 10/09/23 10/10/23 10/10/23 22:20 02:44 03:22 Temperature 98.4 F 97.9 F 97.9 F Pulse Rate 129 H 90 92 Respiratory 20 18 18 Rate Blood Pressure 158/79 116/81 120/82 O2 Sat by Pulse 97 99 99 Oximetry Medical Decision Making - Medical Decision Making Was pt. sent in by a medical professional or institution (JARED Chapa, FRAMEMAN, urgent care, hospital, or penitentiary...) When possible be specific @ -No Did you speak to anyone other than the patient for history (EMS, parent, family, police, friend...)? What history was obtained from this source @ -No Did you review nursing and triage notes (agree or disagree)? Why? @ -I reviewed and agree with nursing and triage notes Were old charts reviewed (outside hosp., previous admission, EMS record, old EKG, old radiological studies, urgent care reports/EKG's, penitentiary records)? Report findings @ -No old charts were reviewed Differential Abdominal Pain Women: Appendicitis, Cholecystitis, diverticulosis, ischemic bowel, pancreatitis, hepatitis, UTI, gastroenteritis, AAA, incarcerated hernia, bowel obstruction, constipation, inflammatory bowel, hepatitis, peptic ulcer disease, splenic infarction, perforated viscus, vulvitis, ovarian torsion, PID, kidney stone, placenta abruption, this is not meant to be an all-inclusive list EKG interpreted by me (3pts min.). @ -As above X-rays interpreted by me (1pt min.). @ -None done CT interpreted by me (1pt min.). @ -None done U/S interpreted by me (1pt. min.). @Ultrasound of the right upper quadrant shows a gallstone in the gallbladder neck without signs of acute cholecystitis. What testing was considered but not performed or refused? (CT, X-rays, U/S, labs)? Why? @ -None What meds were considered but not given or refused? Why? @ -None Did you discuss the management of the patient with other professionals (professionals i.e. JARED Chapa, FRAMEMAN, lab, RT, psych nurse, mental health social worker, pc analyst, teacher, aviation tactical readiness officer, special education case manager)? Give summary @ -No Was smoking cessation discussed for >3mins.? @ -No Was critical care preformed (if so, how long)? @ -No Were there social determinants of health that impacted care today? How? (Homelessness, low income, unemployed, alcoholism, drug addiction, transportation, low edu. Level, literacy, decrease access to med. care, detention, rehab)? @ -No Was there de-escalation of care discussed even if they declined (Discuss DNR or withdrawal of care, Hospice)? DNR status @ -No What co-morbidities impacted this encounter? (DM, HTN, Smoking, COPD, CAD, Cancer, CVA, ARF, Chemo, Hep., AIDS, mental health diagnosis, sleep apnea, morbid obesity)? @ -None Was patient admitted / discharged? Hospital course, mention meds given and route, prescriptions, significant lab abnormalities, going to OR and other pertinent info. @ -28-year-old female who is 11 weeks presenting with epigastric abdominal pain over the past 3 days. No vomiting. No fever. Patient has minimal tenderness on exam. She has normal CBC, normal CMP. I did perform an ultrasound which showed gallstone in the neck of the gallbladder. Patient did not require any pain medication in the emergency department and felt as though the patient was stable for discharge with close return parameters. She is given outpatient surgery follow-up. She will return with worsening pain, fever, vomiting. Undiagnosed new problem with uncertain prognosis? @ -No Drug Therapy requiring intensive monitoring for toxicity (Heparin, Nitro, Insulin, Cardizem)? @ -No Were any procedures done? @ -No Diagnosis/symptom? @ -[Symptomatic gallstone Acute, or Chronic, or Acute on Chronic? @ -Acute Uncomplicated (without systemic symptoms) or Complicated (systemic symptoms)? @ -Default Side effects of treatment? @ -No Exacerbation, Progression, or Severe Exacerbation? @ -No Poses a threat to life or bodily function? How? (Chest pain, USA, [place], pneumonia, PE, COPD, DKA, ARF, appy, cholecystitis, CVA, Diverticulitis, Homicidal, Suicidal, threat to staff... and all critical care pts) @Low risk at this time - Lab Data Result diagrams: 10/10/23 01:09 10/10/23 01:09 Lab Results 10/09/23 10/10/23 10/10/23 Range/Units 22:38 01:09 01:09 WBC 7.7 (3.8-10.6) k/uL RBC 4.19 (3.80-5.40) m/uL Hgb 12.4 (11.4-16.0) gm/dL Hct 36.2 (34.0-46.0) % MCV 86.3 (80.0-100.0) fL MCH 29.6 (25.0-35.0) pg MCHC 34.3 (31.0-37.0) g/dL RDW 13.4 (11.5-15.5) % Plt Count 228 (150-450) k/uL MPV 7.5 Neutrophils % 77 % Lymphocytes % 16 % Monocytes % 4 % Eosinophils % 1 % Basophils % 0 % Neutrophils # 5.9 (1.3-7.7) k/uL Lymphocytes # 1.3 (1.0-4.8) k/uL Monocytes # 0.3 (0-1.0) k/uL Eosinophils # 0.1 (0-0.7) k/uL Basophils # 0.0 (0-0.2) k/uL Sodium 134 L (137-145) mmol/L Potassium 3.8 (3.5-5.1) mmol/L Chloride 103 (98-107) mmol/L Carbon Dioxide 25 (22-30) mmol/L Anion Gap 6 mmol/L BUN 8 (7-17) mg/dL Creatinine 0.53 (0.52-1.04) mg/dL Est GFR (CKD-EPI)AfAm >90 (>60 ml/min/1.73 sqM) Est GFR (CKD-EPI)NonAf >90 (>60 ml/min/1.73 sqM) Glucose 83 (74-99) mg/dL Calcium 8.9 (8.4-10.2) mg/dL Total Bilirubin 0.4 (0.2-1.3) mg/dL AST 29 (14-36) U/L ALT 26 (4-34) U/L Alkaline Phosphatase 69 (38-126) U/L Total Protein 6.6 (6.3-8.2) g/dL Albumin 3.8 (3.5-5.0) g/dL Amylase 70 (30-110) U/L Lipase 74 (23-300) U/L Urine Color Light Yellow Urine Appearance Clear (Clear) Urine pH 6.5 (5.0-8.0) Ur Specific [place] 1.019 (1.001-1.035) Urine Protein Negative (Negative) Urine Glucose (UA) Negative (Negative) Urine Ketones Negative (Negative) Urine Blood Trace H (Negative) Urine Nitrite Negative (Negative) Urine Bilirubin Negative (Negative) Urine Urobilinogen <2.0 (<2.0) mg/dL Ur Leukocyte Esterase Negative (Negative) Urine RBC 1 (0-5) /hpf Urine WBC 2 (0-5) /hpf Ur Squamous Epith Cells 2 (0-4) /hpf Amorphous Sediment Rare H (None) /hpf Urine Bacteria Rare H (None) /hpf Urine Mucus Rare H (None) /hpf Disposition Clinical Impression: Gall stones Disposition: HOME SELF-CARE Condition: Good Instructions (If sedation given, give patient instructions): Biliary Colic (ED), Gallstones (ED), Low Fat Diet (ED) Is patient prescribed a controlled substance at d/c from ED?: No Referrals: Regan Roy DO [Primary Care Provider] - 1-2 days oB Whalen MD [Medical Doctor] - 1-2 days Time of Disposition: 02:21
[2023-10-10] MEDS: SODIUM CHLORIDE 0.9% 1,000 ML IV ONE (01:10)
[2023-10-10 01:27] LABS: Basophils % (A) 0 %; Eosinophils # (A) 0.1 k/uL (0-0.7); Eosinophils % (A) 1 %; HCT 36.2 % (34.0-46.0); HGB 12.4 gm/dL (11.4-16.0); Lymphocytes # (A) 1.3 k/uL (1.0-4.8); Lymphocytes % (A) 16 %; MCH 29.6 pg (25.0-35.0); MCHC 34.3 g/dL (31.0-37.0); MCV 86.3 fL (80.0-100.0); Mean Platelet Volume 7.5; Monocytes # (A) 0.3 k/uL (0-1.0); Monocytes % (A) 4 %; Neutrophils # (A) 5.9 k/uL (1.3-7.7); Neutrophils % (A) 77 %; Platelet Count 228 k/uL (150-450); RBC 4.19 m/uL (3.80-5.40); RDW 13.4 % (11.5-15.5); WBC 7.7 k/uL (3.8-10.6)
[2023-10-10 01:53] LABS: ALT 26 U/L (4-34); AST 29 U/L (14-36); African American GFR (CKD) >90 (>60 ml/min/1.73 sqM); Albumin 3.8 g/dL (3.5-5.0); Alkaline Phosphatase 69 U/L (38-126); Amylase 70 U/L (30-110); Anion Gap 6 mmol/L; Blood Urea Nitrogen 8 mg/dL (7-17); Calcium 8.9 mg/dL (8.4-10.2); Carbon Dioxide 25 mmol/L (22-30); Chloride 103 mmol/L (98-107); Glucose 83 mg/dL (74-99); Lipase 74 U/L (23-300); Non-African American GFR(CKD) >90 (>60 ml/min/1.73 sqM); Potassium 3.8 mmol/L (3.5-5.1); Sodium 134 mmol/L (137-145); Total Bilirubin 0.4 mg/dL (0.2-1.3); Total Protein 6.6 g/dL (6.3-8.2)
[2023-10-10 02:51] VITALS: RESP 18; TEMP 97.9
[2023-10-10 03:42] VITALS: BP 120/82; PULSE 92
--- NOTE | 2023-10-10 03:52 | US ---
EXAM: US Abdomen Limited, Gallbladder CLINICAL HISTORY: ITS.REASON US Reason: ab pain TECHNIQUE: Real-time ultrasound of the right upper quadrant with image documentation. COMPARISON: No relevant prior studies available. FINDINGS: Liver: The liver measures 14.2 cm in length. Gallbladder: Cholelithiasis with a 1.3 cm calculus in the gallbladder. Gallbladder wall thickness measures 3 mm, at the upper limits of normal, without evidence of pericholecystic fluid. The gallbladder measures 7.2 cm in length and 3.4 cm in diameter, not enlarged. No sonographic findings to suggest cholecystitis. Consider HIDA imaging if there is further concern. Common bile duct: The common duct measures 5 mm. No stones. No dilation. Pancreas: Unremarkable as visualized. Right kidney: Unremarkable. No stones. No hydronephrosis. The right kidney measures 11.1 cm in length. IMPRESSION: Cholelithiasis with a 1.3 cm calculus in the gallbladder. Gallbladder wall thickness measures 3 mm, at the upper limits of normal, without evidence of pericholecystic fluid. The gallbladder measures 7.2 cm in length and 3.4 cm in diameter, not enlarged. No sonographic findings to suggest cholecystitis. Consider HIDA imaging if there is further concern.
== END 2023-10-10 03:23 | disposition home or self-care (01) ==
LOC: EC 21:58
DX: O26.611 Liver and biliary tract disorders in pregnancy, first trimester (principal); K80.20 Calculus of gallbladder without cholecystitis without obstruction; Z87.891 Personal history of nicotine dependence; Z3A.11 11 weeks gestation of pregnancy
CPT/HCPCS: 36415; 76705; 80053; 81001; 82150; 83690; 85025; 96360; 99284

== ENCOUNTER 2024-03-26 11:09 | Outpatient (CLI) | payer BC, OTHER ==
[2024-03-26 12:00] LABS: Appearance,Urine Clear (Clear); Bilirubin,Urine Negative (Negative); Blood,Urine Negative (Negative); Color,Urine Colorless; Glucose,Urine (UA) Negative (Negative); Ketones,Urine Negative (Negative); Leukocyte Esterase,Urine Negative (Negative); Nitrite,Urine Negative (Negative); PH, Urine 6.5 (5.0-8.0); Protein,Urine Negative (Negative); Specific Gravity,Urine 1.002 (1.001-1.035); Urobilinogen,Urine <2.0 mg/dL (<2.0)
[2024-03-26 12:12] LABS: Protein/Creatinine Ratio,Urine 0.737
[2024-03-26 12:32] LABS: Basophils % (A) 0 %; Eosinophils # (A) 0.1 k/uL (0-0.7); Eosinophils % (A) 1 %; HCT 33.2 % (34.0-46.0); HGB 10.9 gm/dL (11.4-16.0); Lymphocytes # (A) 1.6 k/uL (1.0-4.8); Lymphocytes % (A) 13 %; MCH 28.1 pg (25.0-35.0); MCHC 32.7 g/dL (31.0-37.0); MCV 85.9 fL (80.0-100.0); Mean Platelet Volume 8.2; Monocytes # (A) 0.5 k/uL (0-1.0); Monocytes % (A) 4 %; Neutrophils # (A) 10.1 k/uL (1.3-7.7); Neutrophils % (A) 81 %; Platelet Count 261 k/uL (150-450); RBC 3.86 m/uL (3.80-5.40); RDW 13.8 % (11.5-15.5); WBC 12.5 k/uL (3.8-10.6)
[2024-03-26 12:44] LABS: ALT 18 U/L (4-34); AST 20 U/L (14-36); African American GFR (CKD) >90 (>60 ml/min/1.73 sqM); Blood Urea Nitrogen 7 mg/dL (7-17); LDH 173 U/L (120-246); Non-African American GFR(CKD) >90 (>60 ml/min/1.73 sqM)
[2024-03-26 13:15] VITALS: BP 137/93; PULSE 97; RESP 16
--- NOTE | 2024-04-30 11:45 | P.MSEPDOC ---
Presenting Problems - Arrival Data Date of Arrival on Unit: 03/26/24 Time of Arrival on Unit: 11:09 Mode of Transport: Ambulatory - Complaint OB-Reason for Admission/Chief Complaint: PIH, Other Comment: Pt presents to triage with c/o of high blood pressure. Pt reports starting last Wednesday she started not feeling well, started taking bp at home and was elevated but would decrease. Pt reports she was told to continue to watch bp. Pt reports bp ranges of 150s/90s to 120/70s. Pt reports she was feeling unwell this morning and bp was elevated to 153/98 with home cuff. Medical History - Information : 6 Para: 2 Term: 2 : 0 Abortions: Spontaneous or Elective: 3 Number of Living Children: 2 - Gestational Age Gestational Age by DARREN (wks/days): 35 Weeks and 4 Days Review of Systems - Review of Systems Constitutional: No problems Breast: No problems ENT: No problems Cardiovascular: No problems Respiratory: No problems Gastrointestinal: No problems Genitourinary: No problems Musculoskeletal: No problems Neurological: No problems Skin: No problems Vital Signs - Pulse Right Brachial Pulse Rate: 97 Pulse Assessment Method: Automatic Cuff - Respirations Respiratory Rate: 16 Oxygen Delivery Method: Room Air O2 Sat by Pulse Oximetry: 98 - Blood Pressure Right Arm Blood Pressure: 137/93 Blood Pressure Mean: 107 Blood Pressure Source: Automatic Cuff Medical Screen Scoring - Assessment - Baby A Baseline FHR: 140 Heart Rate - NICHD Category: Category I (Normal) NST: Reactive Physician Notification - Physician Notified Physician Notified Date: 03/26/24 Physician Notified Time: 11:54 Physician: Marcio Soto New Order Received: Yes - Notification Comment Comment: 1944 Dr. Soto called and given report on pt. Pt c/o. RN discussed hx regarding pt. NST reactive, no contractions noted. BP results readback to Orders received to collect and send [facility] labs. To call with results. [id number] Dr. Soto called and given update on pt. Lab results readback. Orders received to d/c pt to home. Maternal Triage Index - Urgent/Priority 2 Urgent Priority 2: Yes Provider Notified: Marcio Soto Provider Notified Time: 11:54 Criteria Met for Priority 2: Pt presents to triage with c/o of high blood pressure. Pt reports starting last Wednesday she started not feeling well, started taking bp at home and was elevated but would decrease. Pt reports she was told to continue to watch bp. Pt reports bp ranges of 150s/90s to 120/70s. Pt reports she was feeling unwell this morning and bp was elevated to 153/98 with home cuff. Disposition - Disposition OB Disposition: Discharge to home Discharge Date: 03/26/24 Discharge Time: 12:55 I agree with the RN Medical Screening Exam: Yes Physician's MSE Comment: I have neither seen nor examined the patient. Case reviewed; plan agreed upon as documented in EMR&OBIX.: Yes Diagnosis: RELATED CONDITIONS, UNSPECIFIED, THIRD TRIMESTER
== END 2024-03-26 12:55 | disposition home or self-care (01) ==
LOC: FBPOP 11:09
PROVIDERS: ATTEND Obstetrics & Gynecology
DX: O26.93 Pregnancy related conditions, unspecified, third trimester (principal); Z3A.35 35 weeks gestation of pregnancy; Z87.891 Personal history of nicotine dependence
CPT/HCPCS: 59025; 81003; 82565; 82570; 83615; 84156; 84450; 84460; 84520; 84550; 85025; 99213

== ENCOUNTER 2024-04-05 14:44 | Outpatient (CLI) | payer BC, OTHER ==
[2024-04-05 15:29] LABS: Appearance,Urine Clear (Clear); Bilirubin,Urine Negative (Negative); Blood,Urine Negative (Negative); Color,Urine Colorless; Glucose,Urine (UA) 1+ (Negative); Ketones,Urine Negative (Negative); Leukocyte Esterase,Urine Negative (Negative); Nitrite,Urine Negative (Negative); Protein,Urine Negative (Negative); Specific Gravity,Urine 1.007 (1.001-1.035); Urobilinogen,Urine <2.0 mg/dL (<2.0)
[2024-04-05 15:40] LABS: Creatinine,Urine Random 45.8 mg/dL
[2024-04-05 15:54] LABS: Basophils % (A) 0 %; Eosinophils # (A) 0.1 k/uL (0-0.7); Eosinophils % (A) 0 %; HCT 33.1 % (34.0-46.0); HGB 10.9 gm/dL (11.4-16.0); Lymphocytes # (A) 1.5 k/uL (1.0-4.8); Lymphocytes % (A) 13 %; MCH 28.3 pg (25.0-35.0); MCV 85.9 fL (80.0-100.0); Mean Platelet Volume 8.7; Monocytes # (A) 0.4 k/uL (0-1.0); Monocytes % (A) 3 %; Neutrophils # (A) 9.2 k/uL (1.3-7.7); Neutrophils % (A) 82 %; Platelet Count 257 k/uL (150-450); RBC 3.86 m/uL (3.80-5.40); RDW 14.3 % (11.5-15.5); WBC 11.3 k/uL (3.8-10.6)
[2024-04-05 15:59] LABS: Protein/Creatinine Ratio,Urine 0.298
[2024-04-05 16:11] LABS: ALT 20 U/L (4-34); AST 20 U/L (14-36); African American GFR (CKD) >90 (>60 ml/min/1.73 sqM); Blood Urea Nitrogen 7 mg/dL (7-17); LDH 167 U/L (120-246); Non-African American GFR(CKD) >90 (>60 ml/min/1.73 sqM); Uric Acid 3.5 mg/dL (3.7-7.4)
[2024-04-05 17:18] VITALS: BP 156/92; PULSE 104; RESP 16; TEMP 97.8
== END 2024-04-05 16:46 | disposition home or self-care (01) ==
LOC: FBPOP 14:44
PROVIDERS: ATTEND Obstetrics & Gynecology
DX: O10.913 Unspecified pre-existing hypertension complicating pregnancy, third trimester (principal); Z3A.37 37 weeks gestation of pregnancy; Z87.891 Personal history of nicotine dependence
CPT/HCPCS: 59025; 81003; 82565; 82570; 83615; 84156; 84450; 84460; 84520; 84550; 85025; 99215

== ENCOUNTER 2024-04-21 05:53 | Inpatient (IN) | payer BC, OTHER ==
[2024-04-17 13:37] VITALS: BMI 36.0
[2024-04-21] MEDS ORDERED: miSOPROStoL 200 MCG TAB PO PRN (06:12)
[2024-04-21] MEDS ORDERED: TRANEXAMIC 1,000 MG/100ML-NACL 1,000 MG in EMPTY BAG 1 BAG IV PRN (06:12)
[2024-04-21] MEDS ORDERED: CARBOPROST TROMETHAMINE 250 MCG/ML 1 ML AMP IM PRN (06:12)
[2024-04-21] MEDS ORDERED: OXYTOCIN 10 UNIT/ML 1 ML VIAL IM PRN (06:12)
[2024-04-21] MEDS ORDERED: METHYLERGONOVINE 0.2 MG/ML 1 ML AMP IM PRN (06:12)
[2024-04-21] MEDS: LACTATED RINGERS 1,000 ML IV SCH ×2 (06:37→10:52)
[2024-04-21 06:56] LABS: Basophils % (A) 0 %; Eosinophils # (A) 0.1 k/uL (0-0.7); Eosinophils % (A) 1 %; HCT 33.2 % (34.0-46.0); HGB 11.1 gm/dL (11.4-16.0); Lymphocytes # (A) 2.1 k/uL (1.0-4.8); Lymphocytes % (A) 18 %; MCH 27.9 pg (25.0-35.0); MCHC 33.3 g/dL (31.0-37.0); MCV 83.8 fL (80.0-100.0); Mean Platelet Volume 8.4; Monocytes # (A) 0.4 k/uL (0-1.0); Monocytes % (A) 4 %; Neutrophils # (A) 8.5 k/uL (1.3-7.7); Neutrophils % (A) 75 %; Platelet Count 267 k/uL (150-450); RBC 3.96 m/uL (3.80-5.40); RDW 14.4 % (11.5-15.5); WBC 11.3 k/uL (3.8-10.6)
[2024-04-21] MEDS: CITRIC ACID-SODIUM CITRATE 15 ML CUP PO ONE (07:17)
[2024-04-21] MEDS ORDERED: ONDANSETRON 4 MG/2 ML VIAL ONE (07:59)
[2024-04-21] MEDS ORDERED: NALBUPHINE (ANES) 10 MG/ML - 1 ML AMP ONE (07:59)
[2024-04-21] MEDS ORDERED: KETOROLAC 30 MG/ML 1 ML VIAL ONE (07:59)
[2024-04-21] MEDS ORDERED: PHENYLEPHRINE-0.9% NACL SYG 1,000 MCG/10 ML SYRINGE ONE (07:59)
[2024-04-21] MEDS ORDERED: MORPHINE SULFATE (PF) 0.3 MG/0.3 ML SYR ONE (07:59)
[2024-04-21] MEDS ORDERED: OXYTOCIN 30 UNITS/500 ML NS BAG IV ONE (07:59)
--- NOTE | 2024-04-21 07:59 | P.HPOB ---
History of Present Illness H&P Date: 04/21/24 Chief Complaint: scheduled repeat section Ms. Lara is a 28 year old at 39 weeks and 2 days gestation with EDC of 04/26/24 who presents for scheduled repeat section with bilateral salpingectomy. The has been complicated by chronic hypertension, for which the patient was started on Procardia XL 30mg daily during the 3rd trimester. The fetus is estimated in the 43%ile for growth based on a 32 week US. Obstetric history: 2 FTCS, 3 SABs work-up: blood type B positive, antibody negative, rubella immune, VDRL non-reactive, HBsAg negative, HIV negative, HCV Ab non-reactive, gonorrhea negative, chlamydia negative, 1 hour GTT wnl, GBS negative. Past Medical History Past Medical History: GERD/Reflux, Hypertension Additional Past Medical History / Comment(s): gallstones History of Any Multi-Drug Resistant Organisms: None Reported Past Surgical History: Section, Tubal Ligation Additional Past Surgical History / Comment(s): previous c/s 2018 +2020 Past Anesthesia/Blood Transfusion Reactions: No Reported Reaction, Postoperative Nausea & Vomiting (PONV) Additional Past Anesthesia/Blood Transfusion Reaction / Comment(s): Has never had anethesia to date. Past Psychological History: Anxiety, Depression Smoking Status: Former smoker Past Alcohol Use History: None Reported Additional Past Alcohol Use History / Comment(s): started smoking at age [age] years old, quit at age [age] years old, smoked 1ppd Past Drug Use History: None Reported - Past Family History Father Family Medical History: No Reported History Medications and Allergies Home Medications Medication Instructions Recorded Confirmed Type Vit No.179/Iron/Folic 1 tab PO DAILY 03/26/24 04/17/24 History [ Tablet] NIFEdipine XL [Procardia Xl] 30 mg PO QAM 04/17/24 04/21/24 History Allergies Allergy/AdvReac Type Severity Reaction Status Date / Time No Known Allergies Allergy Verified 04/21/24 06:12 Exam Vital Signs Temp Pulse Resp BP Pulse Ox 04/21/24 06:11 96.9 F L 118 H 16 133/69 98 Intake and Output 04/20/24 04/21/24 04/21/24 22:59 06:59 14:59 Other: Weight 95.254 kg Focused physical exam is performed. This is a healthy-appearing in no apparent distress. Breathing is non-labored. Abdomen is gravid and non-tender. Extremities non-tender and non-edematous. heart tones are reactive and reassuring. Results Result Diagrams: 04/21/24 06:18 Abnormal Lab Results - Last 24 Hours (Table) 04/21/24 Range/Units 06:18 WBC 11.3 H (3.8-10.6) k/uL Hgb 11.1 L (11.4-16.0) gm/dL Hct 33.2 L (34.0-46.0) % Neutrophils # 8.5 H (1.3-7.7) k/uL Assessment and Plan Assessment: 28 year old at 39 weeks and 2 days presenting for scheduled repeat section with bilateral salpingectomy Plan: Admit, NPO, initiate section protocol
[2024-04-21] MEDS ORDERED: NALBUPHINE 10 MG/ML (10 ML MDV) IV PRN (08:40)
[2024-04-21] MEDS ORDERED: diphenhydrAMINE 50 MG/ML 1 ML VIAL IVP PRN ×3 (08:40→09:04)
[2024-04-21] MEDS ORDERED: NALOXONE 0.4 MG/ML 1 ML VIAL IV PRN ×2 (08:40→09:04)
[2024-04-21] MEDS ORDERED: HYDROmorphone 0.5 MG/0.5 ML SYRINGE IVP PRN (08:40)
[2024-04-21] MEDS ORDERED: ONDANSETRON 4 MG/2 ML VIAL IVP PRN ×2 (08:40→09:04)
[2024-04-21] MEDS ORDERED: ZOLPIDEM 5 MG TAB PO PRN (09:04)
[2024-04-21] MEDS ORDERED: diphenhydrAMINE 50 MG CAP PO PRN (09:04)
[2024-04-21] MEDS ORDERED: SIMETHICONE 80 MG CHEWABLE PO PRN (09:04)
[2024-04-21] MEDS ORDERED: diphenhydrAMINE 25 MG CAP PO PRN (09:04)
[2024-04-21] MEDS ORDERED: METOCLOPRAMIDE 5 MG/ML 2 ML VIAL IVP PRN (09:04)
--- NOTE | 2024-04-21 09:04 | P.OP ---
Date of Procedure: 04/21/24 Preoperative Diagnosis: 1. Term IUP at 39 weeks 2. History of 2 prior sections 3. History of failed Filshie Clips 4. Desires permanent contraception Postoperative Diagnosis: Same Procedure(s) Performed: Repeat Lower Transverse Section with Bilateral Salpingectomy Implants: None Anesthesia: spinal Surgeon: Shelby Velasquez Reweaver #1: Angélica Zavala Estimated Blood Loss (ml): 290 Urine output (ml): 100 Pathology: other (fallopian tubes) Condition: stable Disposition: floor Indications for Procedure: Ms. Lara is a 28 year old at 39 weeks and 2 days presenting for repeat section with bilateral salpingectomy. The risks, benefits, and alternatives to section were discussed with the patient including risk of bleeding, infection, damage to surrounding structures including bladder/bowels/ureters, and post-operative VTE. The patient understands these risks and desires to proceed with section. She understands bilateral salpingectomy is irreversible and she will not be able to become again without IVF assistance. Operative Findings: Moderate adhesive disease. Viable female infant in cephalic presentation. Apgars 8/9. Weight 8 pounds and 0 ounces (3260 grams). Normal uterus, fallopian tubes, and ovaries. Description of Procedure: The patient was taken back to the operating room where spinal anesthesia was found to be adequate. <wo grams of Ancef were given for infection prophylaxis. She was prepared and draped in the dorsal supine position with a leftward tilt. A Pfannenstiel skin incision was made with the scalpel. The incision was carried down to the fascia with a bovie. The fascia was incised and extended laterally with Romero scissors. The superior aspect of the fascia was grasped with the Polo clamps. The underlying rectus muscle was dissected off sharply with Romero scissors. In a similar fashion, the inferior aspect of the fascia was elevated with Polo clamps and the rectus muscle and pyramidalis were dissected off. Excellent hemostasis was achieved with the bovie. The rectus muscle was in the midline down to the level of the pubic symphysis. Pre- peritoneal fatty tissue was bluntly dissected to expose the peritoneum. The peritoneum was found to be free of adherent bowel and entered sharply with Romero scissors. The peritoneal incision was extended superiorly and inferiorly to the bladder reflection with good visualization of the bladder. The bladder blade was inserted and vesicouterine peritoneum was identified. Intraabdominal survey r evealed scant, clear peritoneal fluid and the thinned-out lower uterine segment. The vesicouterine peritoneum was opened with scissors and the bladder flap was developed. The bladder blade was repositioned to keep the bladder out of the operative field. The lower uterine segment was incised with a scalpel. The amniotic sac was ruptured with an Allis clamp and clear fluid was noted. The uterine incision was extended bluntly with lateral and upward traction. The fetus was in cephalic presentation. The head was elevated out of the pelvis with special attention paid to avoid using the uterine incision as a fulcrum. Gentle fundal pressure was applied once the head was brought into the incision. The infant was delivered with no difficulty and was noted to be crying spontaneously. The mouth and nose were suctioned with a bulb. The cord was clamped and cut. The infant was handed off to the director of music therapy. IV oxytocin was initiated to facilitate uterine contractions. The placenta was delivered intact with manual massage of uterine fundus. The uterus was then exteriorized and the inside of the uterus was gently wiped with a lap sponge to assure complete removal of placental membranes. The uterine incision was closed with 0-Vicryl suture in a running locked fashion. A second imbricating layer was placed with 0-Vicryl. The ovaries and tubes were found to be normal. The LigaSure device was used to sequentially cauterize and cut bilateral fallopian tubes from fibriated ends to the uterine cornua. The uterus and ovaries were then gently returned to the abdominal cavity. The abdomen was copiously suction irrigated. The uterine incision was reinspected and excellent hemostasis was noted. The fascial layer was closed with a 0-Vicryl suture. The subcutaneous tissue was reapproximated with 2-0 Plain Gut. The skin was closed with 4-0 Monocryl in a subcuticular fashion.The patient tolerated the procedure well. All the counts were correct times two. The patient was taken to the recovery room in a stable condition. A physician automotive service assistant was utilized for the entire procedure due to the need for tissue retraction, dissection of vital structures, prevention and management of blood loss, and reduction in overall operative and anesthesia time as is the standard of care.
[2024-04-21] MEDS: KETOROLAC 15 MG/ML 1 ML VIAL IVP SCH (10:51)
[2024-04-21] MEDS: ACETAMINOPHEN TAB 500 MG TAB PO SCH (15:50)
[2024-04-21] MEDS: KETOROLAC 15 MG/ML 1 ML VIAL IVP PRN (18:52)
[2024-04-21] MEDS: SENNOSIDES-DOCUSATE SODIUM 1 EACH TAB PO SCH (20:26)
[2024-04-22] MEDS: IBUPROFEN 800 MG TAB PO SCH (03:52)
[2024-04-22 06:52] LABS: Basophils % (A) 0 %; Eosinophils # (A) 0.1 k/uL (0-0.7); Eosinophils % (A) 1 %; HCT 29.2 % (34.0-46.0); Lymphocytes # (A) 1.8 k/uL (1.0-4.8); Lymphocytes % (A) 14 %; MCH 27.8 pg (25.0-35.0); MCHC 32.8 g/dL (31.0-37.0); MCV 84.7 fL (80.0-100.0); Mean Platelet Volume 8.7; Monocytes # (A) 0.5 k/uL (0-1.0); Monocytes % (A) 4 %; Neutrophils # (A) 10.1 k/uL (1.3-7.7); Neutrophils % (A) 81 %; Platelet Count 220 k/uL (150-450); RBC 3.45 m/uL (3.80-5.40); RDW 14.2 % (11.5-15.5); WBC 12.5 k/uL (3.8-10.6)
[2024-04-22 06:53] LABS: HGB 9.6 gm/dL (11.4-16.0)
--- NOTE | 2024-04-22 09:33 | P.PNOBGPC ---
Subjective - Subjective Principal diagnosis: Status post repeat low transverse postop day 1 Interval history: Seen and examined. Denies nausea, vomiting, chest pain, shortness of breath or calf pain. Patient reports: Reports appetite normal, Reports voiding normally, Reports pain well controlled, Reports ambulating normally : doing well Objective - Vital Signs Latest vital signs: Vital Signs Temp Pulse Resp BP Pulse Ox 04/22/24 08:00 98.2 F 88 16 121/70 04/22/24 00:00 98.1 F 88 18 113/73 04/21/24 17:00 17 96 04/21/24 16:00 98.2 F 71 17 118/78 96 04/21/24 15:00 16 04/21/24 13:40 99 04/21/24 13:00 16 98 04/21/24 11:11 16 99 04/21/24 11:05 64 16 118/62 99 04/21/24 10:50 66 16 113/59 99 04/21/24 10:35 67 16 115/69 98 04/21/24 10:20 71 16 122/70 99 04/21/24 10:05 65 18 116/79 99 04/21/24 09:50 76 18 112/79 99 04/21/24 09:40 18 99 04/21/24 09:35 82 16 107/56 98 Intake and Output 04/21/24 04/22/24 04/22/24 22:59 06:59 14:59 Output Total 600 1220 Balance -600 -1220 Output: Urine 350 1220 Straight 500 Emesis 250 Other: # Voids 1 1 - Exam Lungs: bilateral: normal Chest: Normal S1, Normal S2 Extremities: Present: normal Abdomen: Present: normal appearance, soft. Absent: distention, tenderness Incision: Present: normal, dry, intact Uterus: Present: normal, firm - Labs Labs: Abnormal Lab Results - Last 24 Hours (Table) 04/22/24 Range/Units 05:54 WBC 12.5 H (3.8-10.6) k/uL RBC 3.45 L (3.80-5.40) m/uL Hgb 9.6 L D (11.4-16.0) gm/dL Hct 29.2 L (34.0-46.0) % Neutrophils # 10.1 H (1.3-7.7) k/uL Assessment and Plan (1) Status post repeat low transverse section Current Visit: Yes Status: Acute Code(s): Z98.891 - HISTORY OF UTERINE SCAR FROM PREVIOUS SURGERY SNOMED Code(s): 553603676 Plan: 1. Increase ambulation 2. By mouth pain medication 3. Regular diet
--- NOTE | 2024-04-22 19:04 | P.PN ---
Progress Note - Text 04/22/24 1129 28-year-old female status post with spinal Duramorph. Patient seen and evaluated for postop pain control, she has a VAS of 1 with no complaint of nausea vomiting and mild pruritus.
[2024-04-23] MEDS ORDERED: IBUPROFEN 800 MG TAB PO SCH
[2024-04-23 09:13] VITALS: BP 126/80; PULSE 92; RESP 18; TEMP 98.7
--- NOTE | 2024-04-23 09:44 | P.DS ---
Providers Date of admission: 04/21/24 05:53 Expected date of discharge: 04/23/24 Attending physician: Shelby Velasquez MD Primary care physician: Regan Roy - Discharge Diagnosis(es) (1) Status post repeat low transverse section Current Visit: Yes Status: Acute Hospital Course: Pt presented for repeat low transverse and bilateral salpingectomy. She underwent this procedure without complication. She denies nausea, vomiting, chest pain, shortness of breath or calf pain. Patient will be discharged home postoperative day #2 in stable condition to follow-up with Dr. Liang in 2 weeks Plan - Discharge Summary Discharge Rx Participant: No New Discharge Prescriptions: New Ibuprofen [Motrin] 800 mg PO Q8H #30 tab Discontinued NIFEdipine XL [Procardia Xl] 30 mg PO QAM No Action Vit No.179/Iron/Folic [ Tablet] 1 tab PO DAILY Discharge Medication List Vit No.179/Iron/Folic [ Tablet] 1 tab PO DAILY 03/26/24 [History] Ibuprofen [Motrin] 800 mg PO Q8H #30 tab 04/23/24 [Rx] Follow up Appointment(s)/Referral(s): Angélica Zavala DO [Doctor of Osteopathic Medicine] - 2 Weeks Discharge Disposition: HOME SELF-CARE
== END 2024-04-23 10:40 | disposition home or self-care (01) | DRG 784 ==
LOC: 4FBP 05:53
PROVIDERS: ADMIT Obstetrics & Gynecology; ATTEND Obstetrics & Gynecology
PROC: 0UB70ZZ Excision of Bilateral Fallopian Tubes, Open Approach (ICD-10-PCS; principal; 2024-04-21 08:00)
PROC: 10D00Z1 Extraction of Products of Conception, Low, Open Approach (ICD-10-PCS; principal; 2024-04-21 08:00)
DX: O34.211 Maternal care for low transverse scar from previous cesarean delivery (principal); O10.92 Unspecified pre-existing hypertension complicating childbirth; Z30.2 Encounter for sterilization; Z37.0 Single live birth; K21.9 Gastro-esophageal reflux disease without esophagitis; O99.62 Diseases of the digestive system complicating childbirth; Z3A.39 39 weeks gestation of pregnancy; O99.73 Diseases of the skin and subcutaneous tissue complicating the puerperium; L29.9 Pruritus, unspecified; Z79.899 Other long term (current) drug therapy; Z87.891 Personal history of nicotine dependence; Z86.59 Personal history of other mental and behavioral disorders
CPT/HCPCS: 85025; 86850; 86900; 86901